=== PATIENT | female | born 1960 | race Caucasian/White ===

== ENCOUNTER 2019-04-22 12:52 | Inpatient (IN) | payer MEDICARE, MEDICAID, SELFPAY ==
[2019-04-22] VITALS (9 sets, daily range): BP systolic 113–131; BP diastolic 55–74; PULSE 80–107; RESP 22–40; TEMP 36.6–36.8; O2SAT 4–98; BMI 24.7
--- NOTE | ~2019-04-22 | XR_ITS ---
EXAMINATION: XR chest 2V DATE: 04/22/2019 14:49 INDICATION: Lung cancer and adrenal cancer presenting with shortness of breath TECHNIQUE: PA and lateral views of the chest were obtained. COMPARISON: Chest radiograph dated 02/25/2019 FINDINGS: Right internal jugular central venous port catheter with distal tip at the midsuperior vena cava. Hyp erexpansion of lungs consistent with emphysema better appreciated on prior CT. Mild increased interst itial pattern and mild bronchial wall thickening in the lower lung zones which could represent bronch itis or mild pulmonary edema. A few calcified nodules in the right mid and lower lung zone consistent with old granulomatous disease. Small irregular airspace opacity in the lateral right midlung zone p atchy on the cephalad margin of the minor fissure which appears new since the prior study. No pneumot horax or pleural effusion. Heart size is normal. Likely cholecystectomy clips in the upper abdomen. IMPRESSION: 1. New small patchy airspace opacity in the right midlung zone which need acute setting most likely r epresents atelectasis or pneumonia. Given the history of prior malignancy recommend radiographic foll ow-up to resolution. 2. Emphysema with mild increased interstitial pattern and bronchial wall thickening the lower lung zo farzana which could represent bronchitis or mild pulmonary edema. Reviewed, dictated and finalized at location A. PLANT MANAGER IMPRESSION: 1. New small patchy airspace opacity in the right midlung zone which need acute setting most likely represents atelectasis or pneumonia. Given the history of prior malignancy recommend radiographic follow-up to resolution. 2. Emphysema with mild increased interstitial pattern and bronchial wall thicke erica the lower lung zones which could represent bronchitis or mild pulmonary ed ck.
--- NOTE | ~2019-04-22 | CT_ITS ---
EXAMINATION: CTA chest PE protocol EXAM DATE: 04/22/2019 16:31 INDICATION: Lung, adrenal cancer. Shortness of breath, elevated d-dimer. TECHNIQUE: Spiral CTA of the chest (pulmonary arteries) was performed with 100 cc Omnipaque 350 intr avenous contrast injection. Images were acquired during the pulmonary arterial phase. Coronal maxi mum intensity projection 3D-reconstructions were created by the technologist on dedicated workstation . Axial, coronal and sagittal reformatted images were reviewed. The dose-length product (DLP) for t his examination was 296.73 mGy-cm. The exposure was tailored according to patient size (auto mA exp osure control), and iterative reconstruction (ASIR) was used as additional dose reduction technique. There is no prior study for comparison. FINDINGS: Pulmonary arteries are well opacified and without intraluminal filling defects. There is r ight suprahilar linear opacity, with soft tissue density surrounding bronchovascular structures of th e right hilum superiorly, could be treated lung cancer. There is mild bronchiectasis and moderate emp hysema. Some right apical scarring. No thoracic aortic dissection. Trace pericardial effusion. No pleural effusion. Tracheobronchial tree is patent. Some borderline- sized mediastinal lymph nodes. There is no pneumothorax. Heart normal in size. There is mild cor onary arterial calcification, arterial sclerosis. There are cholecystectomy clips. There is enlargem ent of the left adrenal gland, with 1.6 cm nodular density inside. There is a right-sided Chemo-Port. There may be an old healed right clavicular fracture. There is thoracic spondylosis without osteobl astic or osteolytic lesions identified. IMPRESSION: 1. No pulmonary emboli. 2. Infiltrative right suprahilar soft tissue without discrete focal mass, could be treated malignanc y. 3. Borderline size mediastinal lymph nodes. 4. Moderate emphysema, mild bronchiectasis. 5. Left adrenal nodule, indeterminate. Reviewed, dictated and finalized at location A. TIES TRADER IMPRESSION: 1. No pulmonary emboli. 2. Infiltrative right suprahilar soft tissue without discrete focal mass, coul d be treated malignancy. 3. Borderline size mediastinal lymph nodes. 4. Moderate emphysema, mild bronchiectasis. 5. Left adrenal nodule, indeterminate.
--- NOTE | 2019-04-22 13:47 | ECG_ITS ---
Measurements Intervals [place] Rate: 97 P: 74 ME: 144 QRS: 65 QRSD: 80 T: 66 QT: 369 QTc: 470 Interpretive Statements SINUS RHYTHM POSSIBLE RIGHT ATRIAL ENLARGEMENT LOW QRS VOLTAGE IN PRECORDIAL LEADS ANTEROLATERAL INFARCT, AGE INDETERMINATE INFERIOR INFARCT, AGE INDETERMINATE BASELINE ARTIFACT- II, III, AVL, AVF ABNORMAL ECG Electronically Signed On 04-22-2019 15:18:29 METER/RELAY TECHNICIAN by Mehlu Suazo D.O.
--- NOTE | 2019-04-22 13:52 | ED.SOB ---
HPI - SOB/Dyspnea General Chief Complaint: Shortness of Breath/Dyspnea Stated Complaint: shortness of breath,cold symptoms Time Seen by Provider: 04/22/19 13:50 Source: patient Mode of arrival: ambulatory Limitations: no limitations History of Present Illness HPI Narrative: Darcie is a 59-year-old female patient. She presents ambulatory to the emergency room. She states that she has been short of breath since yesterday. She has a history of COPD. She also has a history of right lung cancer. The lung cancer was diagnosed in December 2017. Her oncologist is Dr. Peres from the [facility] in [place]. She was treated with chemo and radiation for the lung cancer. 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 She states that she just finished radiation for this about a week ago. Her next appointment with her oncologist Dr. Peres in [place] is in 2 weeks. Darcie continues to smoke. She has been smoking since the age of 11 years. She still smokes about a pack per day. She does not use home oxygen. She does have a nebulizer machine which she uses with albuterol. At rest she feels okay but with exertion she feels short of breath. She denies any chest pain. She has no cough or fever. She has no abdominal pain. There is no history of nausea vomiting. MD elicited complaint: shortness of breath Pertinent past history: COPD and other ( Lung cancer. Cancer left adrenal gland.) Onset (ago): day(s) ( Two days) Timing: intermittent Severity: moderate Exacerbating factors: exertion Relieving factors: oxygen and rest Known history of: COPD and other ( Lung cancer. Left adrenal cancer.) Associated symptoms: chest pain ( No chest pain) and rash ( no calf pain swelling or tenderness.) Treatment prior to arrival: none Related Data Home oxygen amount: other ( None) Allergies Allergy/AdvReac Type Severity Reaction Status Date / Time cephalexin Allergy Unknown Verified 06/12/13 08:00 Penicillins Allergy Unknown Verified 06/12/13 07:59 Review of Systems Review of Systems: All systems reviewed & are unremarkable except as noted in HPI and below Constitutional: Constitutional: Reports no additional constitutional complaints, Denies chills and Denies fever(s) Eyes: Eyes: Reports no additional eye complaints and Denies change in vision ENT: Reports system reviewed and no additional complaints, except as documented, Denies epistaxis and Denies sore throat Cardiovascular: Cardiovascular: Reports no additional cardiovascular complaints, Denies chest pain and Denies radiating jaw, neck or arm pain Respiratory: Respiratory: Reports no additional respiratory complaints and Reports dyspnea Gastrointestinal: Gastrointestinal: Reports no additional gastrointestinal complaints, Denies abdominal pain, Denies diarrhea, Denies nausea and Denies vomiting Genitourinary: Genitourinary: Reports no additional female genitourinary complaints and Denies dysuria Musculoskeletal: Musculoskeletal: Reports no additional musculoskeletal complaints and Denies back pain Integumentary/Breasts: Skin/Breast: Reports system reviewed and no additional complaints, except as docu, Denies erythema and Denies rash Neurologic: Reports system reviewed and no additional complaints, except as documented, Denies vertigo, Denies dizziness, Denies syncope, Denies focal weakness and Denies numbness Psychiatric: Psychiatric: Reports no additional psychiatric complaints Endocrine: Endocrine: Reports no additional endocrine complaints, Denies polydipsia and Denies polyuria Hematologic/Lymphatic: Hematologic/Lymphatic: Reports no additional hematologic/lymphatic complaints, Denies easy bleeding and Denies easy bruising Allergic/Immunologic: Allergic/Immunologic: Reports no additional allergic/immunologic complaints, Denies lip swelling, Denies throat swelling and Denies tongue swelling PMFSH Past Medical History Medical History (Updated
[2019-04-22 14:19] LABS: Basophils Absolute Auto 0.02 K/mm3 (0.00-0.10); Basophils Percent Auto 0.3 % (0.0-1.0); Eosinophils Absolute Auto 0.04 K/mm3 (0.02-0.50); Eosinophils Percent Auto 0.6 % (1.0-6.0); Hemoglobin 12.2 g/dL (12.0-15.0); Immature Granulocyte Absolute 0.03 K/mm3 (0.00-0.00); Immature Granulocyte Percent A 0.5 % (0.0-0.0); Lymphocytes Absolute Auto 0.23 K/mm3 (1.10-4.50); Lymphocytes Percent Auto 3.6 % (18.0-42.0); Mean Corpuscular HGB Conc 34.9 g/dL (32.0-36.0); Mean Corpuscular Hemoglobin 35.2 pg (27.0-31.0); Mean Corpuscular Volume 100.9 fL (78.0-102.0); Mean Platelet Volume 9.6 fl (9.2-11.8); Monocytes Absolute Auto 0.47 K/mm3 (0.10-0.90); Monocytes Percent Auto 7.4 % (2.0-11.0); Neutrophils Absolute Auto 5.5 K/mm3 (1.7-7.2); Neutrophils Percent Auto 87.6 % (50.0-70.0); Platelet Count Result 101 K/mm3 (150-420); Red Blood Count 3.47 M/mm3 (4.20-5.40); Red Cell Distribution Width 13.7 % (11.6-14.4); White Blood Count 6.3 K/mm3 (4.8-10.8)
[2019-04-22 14:30] LABS: Base Excess ABG -3.3 mmol/L (0-2); HCO3 ABG 19.4 mmol/L (23-29); Oxygen Content ABG 16.4 %vol (16.0-22.0); Oxygen Saturation ABG 93.1 % (95-97); Oxyhemoglobin 90.6 % (94-100); PCO2 ABG 28.2 mmHg (35-45); PO2 ABG 64.5 mmHg (80-90); Total Hemoglobin 12.9 g/dL; pH ABG 7.46 (7.35-7.45)
[2019-04-22 14:31] LABS: Device NASAL CANNULA; Modified Allen's Test Pass; Site Drawn RIGHT RADIAL
[2019-04-22 14:35] LABS: INR 1.1; Partial Thromboplastin Time 29.9 SEC (22.3-31.6); Prothrombin Time 11.1 Seconds (9.64-11.0)
[2019-04-22 14:37] LABS: Alanine Aminotransferase 25 U/L (14-59); Albumin Level 3.1 g/dL (3.4-5.0); Alkaline Phosphatase 159 U/L (46-116); Anion Gap 14.5 mmol/L (7-16); Aspartate Amino Transferase 20 U/L (15-37); Bilirubin,Total 0.4 mg/dL (0.00-1.00); Blood Urea Nitrogen 7 mg/dL (7-18); Calcium 8.5 mg/dL (8.5-10.1); Carbon Dioxide 23 mmol/L (21-32); Chloride 104 mmol/L (98-108); Estimated CRCL calculation 0 ml/min; Estimated Glomerular Filt Rate > 60; Glucose 77 mg/dL (70-99); Magnesium 2.1 mg/dL (1.8-2.4); Osmolality Calculated 283 mOsm/kg (285-295); Potassium 3.5 mmol/L (3.5-5.1); Sodium 138 mmol/L (136-145); Total Protein 7.5 g/dL (6.4-8.2)
[2019-04-22 14:38] LABS: Troponin I < 0.02 ng/mL (0.00-0.056)
[2019-04-22 14:39] LABS: BNP 67 pg/mL (0-100)
[2019-04-22 15:11] LABS: D Dimer 2.06 mg/L (0.19-0.50)
[2019-04-22 16:43] LABS: Appearance Urine Clear (Clear); Bilirubin Urine Negative (Negative); Blood Urine Negative (Negative); Color Urine Yellow (Yellow); Glucose Urine UA Negative (Negative); Ketones Urine Negative (Negative); Leukocyte Esterase Ur Negative LEU/UL (Negative); Nitrate Urine Negative (Negative); Protein Urine Negative (Negative); Specific Grav Ur <= 1.005 (1.010-1.020); Urobilinogen Urine 0.2 mg/dL (0.2-1.0); pH Urine 6.5 (5.0-8.0)
[2019-04-22 16:50] LABS: Add Urine Microscopic? NO
[2019-04-22 17:01] LABS: Influenza Control Valid (Valid)
--- NOTE | 2019-04-22 17:36 | PC.NURSE ---
SITTING IN W/C AWAITING FOR RE-EXAM PER RADHA. FREDERIC. O2 CONT @ 4 L/NC
--- NOTE | 2019-04-22 17:44 | PC.NURSE ---
D. PT. TO BE ADMITTED OBSERVATION.
--- NOTE | 2019-04-22 18:21 | PC.NURSE ---
ER VERY BUSY PT TO BE ADMITTED TO 204
--- NOTE | 2019-04-22 19:08 | PC.NURSE ---
Patient brought top floor from ED per wheelchair. On O2 per nasal cannula at 4 l. Assisted rinto bed, oriented to room. Call light placed in reach. Commode moved to bedside
[2019-04-22] MEDS: levoFLOXacin 500 MG/D5W 100 ML 500 MG/100 ML BAG 100 MG (19:50)
[2019-04-22] MEDS: IPRATROPIUM 0.5 MG/ALBUTEROL SULFATE 2.5 MG AMPUL.NEB 3 ML INHALATION (20:14)
--- NOTE | 2019-04-22 22:17 | PC.NURSE ---
Patient sitting up in recliner. Coached in pursed lip breathing, focusing on slow and steady breathing. Patient responded well.
[2019-04-23] VITALS (14 sets, daily range): BP systolic 110–124; BP diastolic 57–71; PULSE 77–100; RESP 24–32; TEMP 36.6–37.2; O2SAT 92–96
[2019-04-23] MEDS: IPRATROPIUM 0.5 MG/ALBUTEROL SULFATE 2.5 MG AMPUL.NEB 3 ML INHALATION ×4 (00:32→18:08)
[2019-04-23] MEDS: LORAZEPAM INJ 2 MG/ML VIAL 0.5 MG IV PUSH ×3 (01:03→22:09)
[2019-04-23 05:32] LABS: Basophils Absolute Auto 0.02 K/mm3 (0.00-0.10); Basophils Percent Auto 0.2 % (0.0-1.0); Eosinophils Absolute Auto 0.07 K/mm3 (0.02-0.50); Eosinophils Percent Auto 0.9 % (1.0-6.0); Hematocrit 34.5 % (35.0-49.0); Hemoglobin 11.8 g/dL (12.0-15.0); Immature Granulocyte Absolute 0.02 K/mm3 (0.00-0.00); Immature Granulocyte Percent A 0.2 % (0.0-0.0); Lymphocytes Absolute Auto 0.31 K/mm3 (1.10-4.50); Lymphocytes Percent Auto 3.8 % (18.0-42.0); Mean Corpuscular HGB Conc 34.2 g/dL (32.0-36.0); Mean Corpuscular Hemoglobin 34.5 pg (27.0-31.0); Mean Corpuscular Volume 100.9 fL (78.0-102.0); Mean Platelet Volume 9.8 fl (9.2-11.8); Monocytes Absolute Auto 0.82 K/mm3 (0.10-0.90); Monocytes Percent Auto 10.2 % (2.0-11.0); Neutrophils Absolute Auto 6.8 K/mm3 (1.7-7.2); Neutrophils Percent Auto 84.7 % (50.0-70.0); Platelet Count Result 93 K/mm3 (150-420); Red Blood Count 3.42 M/mm3 (4.20-5.40); Red Cell Distribution Width 13.8 % (11.6-14.4); White Blood Count 8.1 K/mm3 (4.8-10.8)
[2019-04-23 05:44] LABS: Alanine Aminotransferase 26 U/L (14-59); Albumin Level 2.9 g/dL (3.4-5.0); Alkaline Phosphatase 151 U/L (46-116); Anion Gap 17.1 mmol/L (7-16); Aspartate Amino Transferase 22 U/L (15-37); Bilirubin,Total 0.4 mg/dL (0.00-1.00); Blood Urea Nitrogen 7 mg/dL (7-18); Calcium 8.5 mg/dL (8.5-10.1); Carbon Dioxide 21 mmol/L (21-32); Chloride 104 mmol/L (98-108); Estimated CRCL calculation 48 ml/min; Estimated Glomerular Filt Rate > 60; Glucose 98 mg/dL (70-99); Osmolality Calculated 284 mOsm/kg (285-295); Potassium 4.1 mmol/L (3.5-5.1); Sodium 138 mmol/L (136-145); Total Protein 7.1 g/dL (6.4-8.2)
--- NOTE | 2019-04-23 05:53 | PC.NURSE ---
O2 continues 4L per NC.
--- NOTE | 2019-04-23 08:15 | PC.NURSE ---
states no appetite, states takes a medication to help her appetite, no home medications noted
[2019-04-23] MEDS: ENOXAPARIN 40 MG/0.4 ML SYRINGE SUB-Q (09:13)
[2019-04-23] MEDS: LOVASTATIN 20 MG TABLET 10 MG PO (11:03)
[2019-04-23] MEDS: SPIRONOLACTONE 25 MG TABLET 50 MG PO (11:04)
[2019-04-23] MEDS: GABAPENTIN 300 MG CAPSULE PO ×2 (11:05→16:30)
[2019-04-23] MEDS: PANTOPRAZOLE 40 MG TABLET PO (11:06)
--- NOTE | 2019-04-23 11:28 | PC.NURSE ---
noted to be having more trouble breathing, becoming anxious, sats 92% 4L NC, ativan given and mucinex given, cannot lay flat, remains in chair at this time
[2019-04-23] MEDS: PHENYTOIN SODIUM 100 MG CAP 200 MG PO (11:50)
--- NOTE | 2019-04-23 11:53 | PM.IMHP ---
H&P: HPI History of Present Illness Chief complaint: shortness of breath,cold symptoms Narrative: Darcie Redd is a 59 year old female That presented to the ED with complaints of shortness of breath, productive coughing and sneezing that started Monday. she has a medical history of metastatic cancer that originated in the right lung and later to the left adrenal, COPD, she is a current smoker. She was diagnosed with the right lung CA in December 2017 treated with radiation and chemo that she completed. she completed radiation treatment 1 week ago for the adrenal CA. Her oncologist is Dr. Peres. Her current vital signs are 110/6596.6, 94% on 4 L nasal cannula, 26, 94. she has been admitted for PNA. while she was in the ER she did receive a dual nebulizer and was placed on Levaquin. The chest x-ray did indicate PNA. A blood culture was collected her platelets were also low 93 platelet count order every 48 hours. Patient's D-dimer was also positive CTA negative for PE Doppler of lower extremities pending. Patient does not normally use oxygen at home . The nurse did evaluate patient's sats on room air sats remained in the lower 90s to 92. Patient appears to becomes short of breath while coughing. She is also very anxious especially when she coughs. She does have Ativan ordered patient appears very uncomfortable at the time of assessment. She does have labored breathing at this time. Her sputum appears to be clear in color. We will continue antibiotic treatment with nebulizers and inhalers, cough suppressants, use of oxygen, and guaifenesin.Patient denies CP, palpitation, extremity numbness, lightheadness, dizziness, constipation, diarrhea, or chills or fever. Review of Systems Constitutional: Constitutional: Denies chills, Reports difficulty sleeping ( due to shortness of breath), Reports fatigue, Reports poor appetite and Reports weakness Cardiovascular: Cardiovascular: Reports as per HPI and Denies pedal edema Respiratory: Respiratory: Reports chest congestion, Reports cough ( productive clear sputum), Reports dyspnea and Reports wheezing Gastrointestinal: Gastrointestinal: Reports no additional gastrointestinal complaints, Denies dysphagia, Denies diarrhea, Denies loose stools and Denies nausea Psychiatric: Psychiatric: Reports anxiety PMFSH Past Medical History Medical History (Updated 04/23/19 @ 12:52 by Sonda R. Nigel, CAR AUDIO INSTALLER-C) Adrenal cancer COPD (chronic obstructive pulmonary disease) History of lung cancer Surgical History Surgical History (Updated 04/22/19 @ 14:41 by Steve Ho MD) History of appendectomy History of lung biopsy Hx of tonsillectomy Status post complete hysterectomy Family History Family History (Updated 04/22/19 @ 14:42 by Steve Ho MD) Mother No problems noted. Other Diabetes mellitus Family history of alcoholism Family history of blood dyscrasia Family history of heart disease in male family member before age 55 Family history of seizure disorder Hypertension Social History Social History (Updated 04/22/19 @ 14:43 by Steve Ho MD) Smoking packs per day: 1 Smoking cigarettes per day: 20.0 Years smoked: 45 Smoking pack-years: 45.00 Smoking status: Heavy tobacco smoker Tobacco type: cigarettes Additional smoking assessment comments: smokes 1 pack per day Alcohol intake: never Substance use: never Gender identity (if verbalized by the patient): Female Spiritual care concerns: No Agree to blood products: Yes Meds Home Medications and Allergies Home Medications Medication Instructions Recorded Confirmed Type No Home Medications 04/22/19 04/22/19 History Allergies Allergy/AdvReac Type Severity Reaction Status Date / Time cephalexin Allergy Unknown Verified 06/12/13 08:00 Penicillins Allergy Unknown Verified 06/12/13 07:59 Vital Signs Vital Signs - 24 hr 04/22/19
[2019-04-23] MEDS: LEVOTHYROXINE SODIUM 100 MCG TABLET PO (13:03)
[2019-04-23] MEDS: BENZONATATE 100 MG CAPSULE 200 MG PO ×2 (13:03→16:29)
[2019-04-23] MEDS: MEGESTROL ACETATE (*CHEMO) ORAL SUSP 40 MG/ML SYR 400 MG PO (16:28)
[2019-04-23] MEDS: PHENYTOIN SODIUM 100 MG CAP PO (16:29)
[2019-04-23] MEDS: POTASSIUM CHLORIDE 20 MEQ PACKET (FOR LIQUID) PO (16:30)
--- NOTE | 2019-04-23 18:34 | PC.NURSE ---
Resting more comfortable at this time, pillows under bottom and behind back and knees for comfort, oxygen on at 4L NC
--- NOTE | 2019-04-23 19:25 | PM.EVENT ---
Event Note Event Note: Patient states that she still feels rather short of breath in spite of the oxygen and is unsure why she is feeling this way. Exam shows mild acute respiratory distress without hypoxia and diffuse wheezing and rales. Tachycardic without JVD. no peripheral edema Likely COPD exacerbation plus pneumonia: We will continue antibiotics, nebs and put her on DVT prophylaxis. CTA chest negative and get venous ultrasound for DVT on . Hypertension, Hypothyroidism, seizures, GERD, lung cancer: continue current treatment. Will monitor symptoms. I have examined the patient reviewed the chart. I discussed the patient's care with Zander Manning APN and agree with her assessment and plan.
[2019-04-23] MEDS: VERAPAMIL HCL ER 120 MG TABLET PO (20:51)
[2019-04-23] MEDS: MONTELUKAST SODIUM 10 MG TABLET PO (20:51)
[2019-04-23] MEDS: MELATONIN 5 MG TABLET PO (20:51)
[2019-04-23] MEDS: levoFLOXacin 250 MG/D5W 50 ML 250 MG/50 ML BAG 50 MG IVPB (20:52)
--- NOTE | 2019-04-23 22:05 | PC.NURSE ---
pt was coughing and started feeling very anxious, pt requested medication to help her calm her anxiety, see MAR
--- NOTE | 2019-04-23 23:13 | PC.NURSE ---
Sitting up in chair, sleeping, report received from off going nurse. No distress noted.
[2019-04-24] VITALS (13 sets, daily range): BP systolic 105–120; BP diastolic 51–78; PULSE 63–107; RESP 20–22; TEMP 35.6–36.8; O2SAT 86–95
[2019-04-24] MEDS: IPRATROPIUM 0.5 MG/ALBUTEROL SULFATE 2.5 MG AMPUL.NEB 3 ML INHALATION ×3 (00:03→11:49)
--- NOTE | 2019-04-24 03:02 | PC.NURSE ---
Coughing frequently, states can't clear secretions; denies SOB, noted increased increased respiratory effort and respirations:24. Pox:95% on 4L per n.c.; Albuterol inhaler 2 puffs given. Education provided on medication use and side effects
[2019-04-24] MEDS: LEVOTHYROXINE SODIUM 100 MCG TABLET PO (05:53)
--- NOTE | 2019-04-24 06:40 | PC.NURSE ---
Sitting in chair with oxygen on, skin pink, Respirations easy/uinlabored. No distress noted.
--- NOTE | 2019-04-24 08:07 | PC.NURSE ---
Assisted from recliner chair to regular chair for breakfast
[2019-04-24] MEDS: MEGESTROL ACETATE (*CHEMO) ORAL SUSP 40 MG/ML SYR 400 MG PO (08:27)
[2019-04-24] MEDS: SPIRONOLACTONE 25 MG TABLET PO (08:28)
[2019-04-24] MEDS: GABAPENTIN 300 MG CAPSULE PO (08:28)
[2019-04-24] MEDS: PANTOPRAZOLE 40 MG TABLET PO (08:29)
[2019-04-24] MEDS: LOVASTATIN 20 MG TABLET 10 MG PO (08:29)
[2019-04-24] MEDS: DOCUSATE SODIUM 100 MG CAPSULE PO (08:29)
[2019-04-24] MEDS: BENZONATATE 100 MG CAPSULE 200 MG PO ×2 (08:30→12:32)
[2019-04-24] MEDS: POTASSIUM CHLORIDE 20 MEQ PACKET (FOR LIQUID) PO (08:30)
[2019-04-24] MEDS: ENOXAPARIN 40 MG/0.4 ML SYRINGE SUB-Q (08:30)
[2019-04-24] MEDS: PHENYTOIN SODIUM 100 MG CAP PO (08:30)
[2019-04-24 08:48] LABS: Hemoglobin 11.4 g/dL (12.0-15.0); Mean Corpuscular HGB Conc 34.5 g/dL (32.0-36.0); Mean Corpuscular Hemoglobin 34.5 pg (27.0-31.0); Mean Platelet Volume 9.8 fl (9.2-11.8); Platelet Count Result 84 K/mm3 (150-420); Red Cell Distribution Width 13.8 % (11.6-14.4)
[2019-04-24 09:06] LABS: Blood Urea Nitrogen 9 mg/dL (7-18); Calcium 8.7 mg/dL (8.5-10.1); Carbon Dioxide 20 mmol/L (21-32); Chloride 104 mmol/L (98-108); Estimated CRCL calculation 53 ml/min; Estimated Glomerular Filt Rate > 60; Glucose 93 mg/dL (70-99); Osmolality Calculated 282 mOsm/kg (285-295); Sodium 137 mmol/L (136-145)
--- NOTE | 2019-04-24 09:18 | PC.NURSE ---
Up to commode, increase champion noted when up, oxygen on at 4L NC
[2019-04-24] MEDS: methylPREDNISolone SOD SUCC 125 MG VIAL 60 MG IV PUSH (10:17)
--- NOTE | 2019-04-24 11:36 | HOMEO2EVAL ---
Home Oxygen Evaluation RC: Home Oxygen (O2) Evaluation Start: 04/24/19 10:06 Freq: ONCE Status: Active Protocol: RPE Activity Type Activity Date Activity User E-Sign Co-Sign Detail Recorded Client Recorded Date Recorded By Document 04/24/19 11:10 SJBernard [id number] 04/24/19 11:36 SJB Document 04/24/19 11:13 SJB [id number] 04/24/19 11:36 SJB Document 04/24/19 11:14 SJB [id number] 04/24/19 11:36 SJB Document 04/24/19 11:16 SJB [id number] 04/24/19 11:36 SJB 04/24/19 04/24/19 04/24/19 11:10 11:13 11:14 Home O2 Evaluation Test Phase Resting Exercise Exercise Oxygen Delivery Room Air Nasal Cannula Oxygen Flow Rate (L/min) 0 2 Pulse Oximetry (90-100 %) 91 86 L 88 L Pulse Rate (60-100 beats/min) 95 104 H 107 H Activity Tolerance Fair Fair Rating of Perceived Dyspnea (PD) +3 Moderate +3 Moderate Difficulty, But Difficulty, But Can Continue Can Continue Rate of Perceived Exertion (PE) 13 Somewhat 13 Somewhat Hard Hard Ambulation Distance (feet) 45 100 Home Oxygen Evaluation Comments Pt walked Pt stopped at approx. 45 ft 100 ft, SOB, Sp02 dropping Sp02 at 88% on to 86% on room 2 lpm. Will air. 2 lpm continue walk oxygen will be increasing initiated to oxygen to 3 lpm continue walk. . Treatment Charges O2 Evaluation 04/24/19 11:16 Home O2 Evaluation Test Phase Exercise Oxygen Delivery Oxygen Flow Rate (L/min) 3 Pulse Oximetry (90-100 %) 94 Pulse Rate (60-100 beats/min) 105 H Activity Tolerance Fair Rating of Perceived Dyspnea (PD) +3 Moderate Difficulty, But Can Continue Rate of Perceived Exertion (PE) 17 Very Hard Ambulation Distance (feet) 135 Home Oxygen Evaluation Comments Pt continued to walk to 135 ft with Sp02s at 93-94%. PLB re educated and demonstrated by patient. Treatment Charges
--- NOTE | 2019-04-24 12:17 | PC.NURSE ---
Attempting to eat lunch, denies needs, no pain, champion noted, oxygen in place
--- NOTE | 2019-04-24 12:54 | PM.DS ---
DS: Diagnosis Admitting Diagnosis Admitting Diagnosis: Secondary malignant neoplasm of unspecified site Discharge Diagnosis (1) Metastatic disease: Code(s): C79.9 - Secondary malignant neoplasm of unspecified site Status: Acute Assessment and Plan: - patient diagnosed with right lung CA in 2018 along with Mediastinal lymph node involvement, radiation and chemo completed. - Also diagnosed with left adrenal CA she completed radiation 1 week ago. - Darcie is still getting Chemo every 2 weeks, and her last tx was due yesterday but she missed it due to this hospitalization. She called her Oncologist Dr. Peres and it was cancelled. She will now have to wait 2 weeks for her next Chemo tx. - She has been instructed to F/U with her Oncologist Dr. Peres, PCP Dr. Fajardo, and a Aquatic Director in the next 3-10 days. - Due to her Cancer/Chemo/Radiation/ Smoking history / Cerebral Aneurysm history - she is to follow up with the Vascular Physician in [place] in 3-10 days. (2) GERD (gastroesophageal reflux disease): Code(s): K21.9 - Gastro-esophageal reflux disease without esophagitis Status: Acute Assessment and Plan: - Stable - Continued oral Protonix at discharge (3) History of seizure: Code(s): Z87.898 - Personal history of other specified conditions Status: Acute Assessment and Plan: - stable - she has not had a seizure in over 20 years with the use of her medications. - continued home dose of Dilantin at discharge - started seizure precaution - no concerns or signs of seizures while hospitalized. (4) Hypertension: Code(s): I10 - Essential (primary) hypertension Status: Acute Assessment and Plan: stable - blood pressures stable 110/65 - continued home antihypertensive medication. - no titrations made or needed while in hospital. - vital signs as ordered (5) Hypothyroidism: Code(s): E03.9 - Hypothyroidism, unspecified Status: Acute Assessment and Plan: - continue Synthroid - will follow up with PCP (6) Pneumonia: Qualifiers: Laterality: right Lung location: middle lobe of lung Pneumonia type: due to unspecified organism Qualified Code(s): J18.9 - Pneumonia, unspecified organism Code(s): J18.9 - Pneumonia, unspecified organism Status: Acute Assessment and Plan: - chest x-ray indicate-New small patchy airspace opacity in the right midlung zone which need acute setting most likely represents atelectasis or pneumonia. - continue Levaquin oral at home at discharge. - continue nebulizers and inhalers at home - continue use of oxygen as ordered below. Wear your 3 Lpm Oxygen for all Walking, Exercise, Activity, and Activities of Daily Living, Bathroom trips, etc. Without oxygen, your oximetry levels drops and you may become short of breath, dizzy, and/or light-headed. May use 0-3 LPM Oxygen while at rest, but ONLY if sitting upright. If Napping or Sleeping or lying down, MUST wear 2-3 LPM Oxygen. Follow up with your Aquatic Director. Ask PCP Dr. Fajardo for Aquatic Director referral if you do not currently have a Aquatic Director. May shower with Oxygen on at 3 L O2 NC and use a Shower Chair with someone standing beside for assistance and support. No Driving. Use your transportable Oxygen supply for trips away from home, such as doctor visits, etc. Use your Nebulizer for Duo-Neb treatments every 4-6 hours SCHEDULED dosing for the next 5-7 days to keep improving. Likely COPD exacerbation WITH RML, RLL, LLL pneumonia: Continue your Antibiotics Levaquin, Steroids Prednisone, Nebulizer Treatments, Mucinex, Tessalon, and Allergy medications. In the next 3-7 days, please Follow up with your PCP Dr. Fajardo's office. In the next 3-7 days, Follow up with your Vascular Physician Dr. Mel Pizano at [place] [place] [facility] at . Discuss your elevated D-dimer and low Platelets and Aneurysm. In the next 3-7 days, p
--- NOTE | 2019-04-24 14:46 | PC.NURSE ---
Mikhail here and set up for home oxygen, assited to dress, awaiting return of for orange picker for home
--- NOTE | 2019-04-24 15:30 | PC.NURSE ---
WC with oxygen to car, discharged with spouse, personal items and medications sent with patient
--- NOTE | 2019-04-30 13:21 | PC.NURSE ---
Discharge Call Back [phone] Patient is doing better, trying to get stronger. Discharge F/U complete yesterday, Follow-up X-Ray good Problem with medication prescriptions at discharge, and that she sat in the ER for 7 Hours before being transfered up to the floor. Otherwise the Floor RN's were amazing. All discharge instructions were understood given verbally and in writing.
== END 2019-04-24 15:35 | disposition home or self-care (01) | DRG 190 ==
LOC: CHSED 12:56 → CHS2ND 17:46
PROVIDERS: Nurse Practitioner; Admitting Provider Surgery; Emergency Provider Surgery; PCP Internal Medicine; Visit Provider Surgery
DX: J44.0 Chronic obstructive pulmonary disease with (acute) lower respiratory infection (principal); J18.9 Pneumonia, unspecified organism; C34.91 Malignant neoplasm of unspecified part of right bronchus or lung; C79.72 Secondary malignant neoplasm of left adrenal gland; D69.59 Other secondary thrombocytopenia; F17.210 Nicotine dependence, cigarettes, uncomplicated; I10 Essential (primary) hypertension; E03.9 Hypothyroidism, unspecified; K21.9 Gastro-esophageal reflux disease without esophagitis; R56.9 Unspecified convulsions; T45.1X5D Adverse effect of antineoplastic and immunosuppressive drugs, subsequent encounter; Z92.3 Personal history of irradiation
CPT/HCPCS: 36415; 36600; 71046; 71275; 80048; 80053; 81003; 82805; 83735; 83880; 84484; 85025; 85027; 85380; 85610; 85730; 87040; 87804; 88321; 93005; 94618; 94640; 99284; 99285; A9270; J1642; J1650; J1956; J2060; J2930; Q9965

== ENCOUNTER 2019-06-03 06:53 | Outpatient (CLI) | payer MEDICARE, SELFPAY ==
[2019-06-03 07:14] LABS: Basophils Absolute Auto 0.05 K/mm3 (0.00-0.10); Basophils Percent Auto 0.7 % (0.0-1.0); Eosinophils Absolute Auto 0.04 K/mm3 (0.02-0.50); Eosinophils Percent Auto 0.5 % (1.0-6.0); Hematocrit 33.8 % (35.0-49.0); Hemoglobin 11.8 g/dL (12.0-15.0); Immature Granulocyte Absolute 0.04 K/mm3 (0.00-0.00); Immature Granulocyte Percent A 0.5 % (0.0-0.0); Lymphocytes Percent Auto 13.2 % (18.0-42.0); Mean Corpuscular HGB Conc 34.9 g/dL (32.0-36.0); Mean Corpuscular Hemoglobin 36.6 pg (27.0-31.0); Mean Platelet Volume 8.9 fl (9.2-11.8); Monocytes Absolute Auto 0.87 K/mm3 (0.10-0.90); Monocytes Percent Auto 11.4 % (2.0-11.0); Neutrophils Absolute Auto 5.6 K/mm3 (1.7-7.2); Neutrophils Percent Auto 73.7 % (50.0-70.0); Platelet Count Result 181 K/mm3 (150-420); Red Blood Count 3.22 M/mm3 (4.20-5.40); Red Cell Distribution Width 15.9 % (11.6-14.4); White Blood Count 7.6 K/mm3 (4.8-10.8)
[2019-06-03 08:48] LABS: Alanine Aminotransferase 36 U/L (14-59); Albumin Level 3.2 g/dL (3.4-5.0); Alkaline Phosphatase 179 U/L (46-116); Aspartate Amino Transferase 26 U/L (15-37); Bilirubin,Total 0.2 mg/dL (0.00-1.00); Blood Urea Nitrogen 10 mg/dL (7-18); Calcium 8.2 mg/dL (8.5-10.1); Carbon Dioxide 21 mmol/L (21-32); Chloride 109 mmol/L (98-108); Estimated Glomerular Filt Rate > 60; Glucose 74 mg/dL (70-99); Osmolality Calculated 290 mOsm/kg (285-295); Sodium 141 mmol/L (136-145); Total Protein 6.7 g/dL (6.4-8.2)
== END 2019-06-03 06:54 | disposition home or self-care (01) ==
LOC: CHSLAB 06:56
PROVIDERS: PCP Internal Medicine; Visit Provider Internal Medicine Hematology & Oncology
DX: C34.90 Malignant neoplasm of unspecified part of unspecified bronchus or lung (principal); R53.83 Other fatigue; Z79.899 Other long term (current) drug therapy
CPT/HCPCS: 36415; 80053; 85025

== ENCOUNTER 2019-12-20 12:19 | Outpatient (CLI) | payer MEDICARE, MEDICAID, SELFPAY ==
--- NOTE | ~2019-12-20 | XR_ITS ---
EXAMINATION: XR shoulder LT min 2V DATE: 12/20/2019 12:38 INDICATION: Left shoulder pain. TECHNIQUE: 4 views of left shoulder were obtained. COMPARISON: None. FINDINGS: Bone alignment is normal. No fracture. Glenohumeral joint is normal. There is mild acromioc lavicular joint osteoarthritis. There is a central line tip in superior vena cava. IMPRESSION: 1. Mild acromioclavicular joint osteoarthritis. Reviewed, dictated and finalized at location B.
== END 2019-12-20 12:20 | disposition home or self-care (01) ==
LOC: CHSIMG 12:21
PROVIDERS: PCP Internal Medicine; Visit Provider Internal Medicine
DX: M25.512 Pain in left shoulder (principal); Z85.038 Personal history of other malignant neoplasm of large intestine
CPT/HCPCS: 73030

== ENCOUNTER 2020-02-22 07:07 | Outpatient (CLI) | payer MEDICARE, SELFPAY ==
[2020-02-26 11:07] LABS: Metanephrine, Free 48 pg/mL (<=57); Normetanephrine, Free 128 pg/mL (<=148); Total, Free (MN + NMN) 176 pg/mL (<=205)
[2020-02-26 13:07] LABS: DHEA-Sulfate 2 mcg/dL (12-133)
[2020-02-27 12:47] LABS: Cortisol Random 2.9 mcg/dL (***)
[2020-02-29 13:37] LABS: Renin 3.73 ng/mL/h (0.25-5.82)
== END 2020-02-22 07:08 | disposition home or self-care (01) ==
LOC: CHSLAB 07:13
PROVIDERS: PCP Internal Medicine
DX: E27.8 Other specified disorders of adrenal gland (principal)
CPT/HCPCS: 36415; 82088; 82533; 82627; 83498; 83835; 84244

== ENCOUNTER 2020-02-24 09:28 | Outpatient (CLI) | payer MEDICARE, SELFPAY | END 2020-02-24 09:29 | disposition home or self-care (01) | PROVIDERS: PCP Internal Medicine | DX: E27.8 Other specified disorders of adrenal gland (principal) | CPT/HCPCS: 36415; 82384; 82530; 82570; 83835 ==

== ENCOUNTER 2020-05-19 14:55 | Outpatient (CLI) | payer MEDICARE, SELFPAY ==
[2020-05-19 15:06] LABS: Basophils Absolute Auto 0.06 K/mm3 (0.00-0.10); Basophils Percent Auto 0.9 % (0.0-1.0); Eosinophils Absolute Auto 0.17 K/mm3 (0.02-0.50); Eosinophils Percent Auto 2.5 % (1.0-6.0); Hematocrit 33.2 % (35.0-49.0); Hemoglobin 11.2 g/dL (12.0-15.0); Immature Granulocyte Absolute 0.02 K/mm3 (0.00-0.00); Immature Granulocyte Percent A 0.3 % (0.0-0.0); Lymphocytes Absolute Auto 1.13 K/mm3 (1.10-4.50); Lymphocytes Percent Auto 16.6 % (18.0-42.0); Mean Corpuscular HGB Conc 33.7 g/dL (32.0-36.0); Mean Corpuscular Hemoglobin 32.8 pg (27.0-31.0); Mean Corpuscular Volume 97.4 fL (78.0-102.0); Mean Platelet Volume 8.9 fl (9.2-11.8); Monocytes Absolute Auto 0.72 K/mm3 (0.10-0.90); Monocytes Percent Auto 10.6 % (2.0-11.0); Neutrophils Absolute Auto 4.7 K/mm3 (1.7-7.2); Neutrophils Percent Auto 69.1 % (50.0-70.0); Platelet Count Result 233 K/mm3 (150-420); Red Blood Count 3.41 M/mm3 (4.20-5.40); Red Cell Distribution Width 12.5 % (11.6-14.4); White Blood Count 6.8 K/mm3 (4.8-10.8)
[2020-05-19 15:14] LABS: Add Urine Microscopic? NO; Appearance Urine Clear (Clear); Bilirubin Urine Negative (Negative); Blood Urine Negative (Negative); Color Urine Yellow (Yellow); Glucose Urine UA Negative (Negative); Ketones Urine Negative (Negative); Leukocyte Esterase Ur Negative LEU/UL (Negative); Nitrate Urine Negative (Negative); Protein Urine Negative (Negative); Specific Grav Ur 1.015 (1.010-1.020); Urobilinogen Urine 0.2 mg/dL (0.2-1.0); pH Urine 5.5 (5.0-8.0)
[2020-05-19 15:22] LABS: Alanine Aminotransferase 21 U/L (14-59); Albumin Level 3.2 g/dL (3.4-5.0); Alkaline Phosphatase 175 U/L (46-116); Anion Gap 10 mmol/L (8-16); Aspartate Amino Transferase 23 U/L (15-37); Bilirubin,Total 0.3 mg/dL (0.00-1.00); Blood Urea Nitrogen 6 mg/dL (7-18); Calcium 8.4 mg/dL (8.5-10.1); Carbon Dioxide 24 mmol/L (21-32); Chloride 100 mmol/L (98-108); Creatine Kinase 63 U/L (26-192); Estimated Glomerular Filt Rate > 60; Glucose 95 mg/dL (70-99); Osmolality Calculated 275 mOsm/kg (285-295); Phenytoin Dilantin 14 ug/mL (10-20); Phosphorus 3.3 mg/dL (2.6-4.7); Potassium 3.6 mmol/L (3.5-5.1); Sodium 134 mmol/L (136-145); Total Protein 7.1 g/dL (6.4-8.2)
[2020-05-21 15:48] LABS: Gabapentin 4.9 mcg/mL
== END 2020-05-19 14:56 | disposition home or self-care (01) ==
LOC: CHSLAB 14:56
PROVIDERS: PCP Internal Medicine; Visit Provider Internal Medicine
DX: G25.9 Extrapyramidal and movement disorder, unspecified (principal); G40.909 Epilepsy, unspecified, not intractable, without status epilepticus; Z85.118 Personal history of other malignant neoplasm of bronchus and lung
CPT/HCPCS: 36415; 80053; 80171; 80185; 81003; 82550; 83735; 84100; 85025; 86140

== ENCOUNTER 2020-05-23 08:04 | Outpatient (CLI) | payer MEDICARE, MEDICAID, SELFPAY ==
--- NOTE | ~2020-05-23 | MR_ITS ---
EXAMINATION: MR brain/brain stem wo/w con DATE: 05/23/2020 11:10 INDICATION: Metastatic disease. Lung cancer. TECHNIQUE: Magnetic resonance imaging (MRI) of the brain and brainstem was performed without and with 10 mL MultiHance intravenous contrast. Sequences included sagittal and axial T1-weighted FSE, axial diffusion-weighted FS EPI, axial T2*-weighted GRE, axial T2-weighted FLAIR Propeller, and axial T2-we ighted Propeller. Postcontrast sequences included axial and coronal T1-weighted FSE. Apparent diffusi on coefficient (ADC) maps were created. COMPARISON: Head CT 07/12/2018 FINDINGS: There are scattered areas of nonspecific increased T2-weighted signal intensity in the cere bral white matter and jeremy. There is no intracranial hemorrhage, acute infarction, or abnormal intrac ranial mass lesion. The ventricles are normal in size. The paranasal sinuses are clear. There are lik mike changes of ocular lens replacement surgeries. There are small bilateral mastoid effusions. IMPRESSION: 1. No evidence of metastatic disease. 2. 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 Reviewed, dictated and finalized at location A. Y COUNTER
== END 2020-05-23 08:05 | disposition home or self-care (01) ==
LOC: CHSIMG 08:07
PROVIDERS: PCP Internal Medicine; Visit Provider Internal Medicine
DX: C79.9 Secondary malignant neoplasm of unspecified site (principal)
CPT/HCPCS: 70553; A9577

== ENCOUNTER 2022-02-03 21:03 | Inpatient (IN) | payer MEDICARE, MEDICAID, SELFPAY ==
--- NOTE | ~2022-02-03 | XR_ITS ---
EXAMINATION: XR chest 1V portable INDICATION: Shortness of breath TECHNIQUE: Portable AP chest at 2200 hours COMPARISON: 05/20/2019 FINDINGS: A right internal jugular Port-A-Cath ends with its tip in the distal superior vena cava. Th ere is scarring in the right lung apex and volume loss in the right upper lobe. Calcified nodules of the right lung likely reflect old granulomatous disease. The lungs are free of acute opacities. No pl eural effusion or pneumothorax. IMPRESSION: 1. No acute cardiopulmonary abnormality. Reviewed, dictated and finalized at location F.
--- NOTE | ~2022-02-03 | NM_ITS ---
EXAMINATION: NM pulmonary perfusion DATE: 02/04/2022 11:03 INDICATION: Elevated d-dimer TECHNIQUE: 5.5 mCi Tc-99m MAA by intravenous route. Scintigraphic images of the chest were obtained. COMPARISON: Chest radiograph dated 02/03/2022 FINDINGS: Large perfusion defect involving nearly the entire right upper lobe with mild relative sparing at the apex. There is corresponding airspace opacity and some volume loss in the right upper lobe on the ea rlier radiograph. Additional additional large perfusion defect without associated airspace opacity in volving the posterior basilar segment of the right lower lobe. Additional large perfusion defect invo lving the right middle lobe also without associated airspace opacity. A couple small unmatched perfus ion defects at the lingula and anterior segment of the left upper lobe. IMPRESSION: 1. High probability for pulmonary embolism. Reviewed, dictated and finalized at location B.
--- NOTE | ~2022-02-03 | CT_ITS ---
EXAMINATION: CT brain wo con INDICATION: Headache COMPARISON: 07/12/2018 TECHNIQUE: Standard unenhanced head CT. The dose-length product (DLP) was 681.00 mGy-cm. The mA was a djusted according to patient size. Iterative reconstruction technique was employed. FINDINGS: There is no acute intraparenchymal hemorrhage. No evidence of mass lesion. No evidence of a cute infarction. There is diffuse hypodensity in the cerebral white matter, likely related to radiati on change. There is mild prominence of the sulci and ventricles related to cerebral atrophy. Intracra nial calcified cerebral atherosclerosis is noted. There are no extra-axial collections. There is no m ass effect or midline shift. Changes in the globes are likely from ocular lens surgery. The visualize d sinuses and mastoid air cells are well aerated. IMPRESSION: 1. No acute intracranial abnormality. 2. Age related findings. 3. Diffuse cerebral white matter disease with interval worsening. Reviewed, dictated and finalized at location F.
--- NOTE | 2022-02-03 21:07 | ECG_ITS ---
Measurements Intervals [place] Rate: 125 P: [place]: 0 QRS: 54 QRSD: 165 T: 83 QT: 348 QTc: 503 Interpretive Statements ATRIAL FLUTTER WITH 2-[address] ABNORMALITY ABNORMAL ECG COMPARED TO ECG 04/22/2019 14:02:54 ATRIAL FLUTTER REPLACES SINUS RHYTHM Electronically Signed On 02-04-2022 15:50:52 CDT by Leeroy Owusu M.D.
[2022-02-03 21:08] VITALS: BP 143/90; PULSE 107; RESP 20; TEMP 37.4; O2SAT 96
[2022-02-03 21:32] LABS: Basophils Absolute Auto 0.05 K/mm3 (0.00-0.10); Basophils Percent Auto 0.5 % (0.0-1.0); Eosinophils Absolute Auto 0.15 K/mm3 (0.02-0.50); Eosinophils Percent Auto 1.6 % (1.0-6.0); Hemoglobin 12.7 g/dL (12.0-15.0); Immature Granulocyte Absolute 0.05 K/mm3 (0.00-0.00); Immature Granulocyte Percent A 0.5 % (0.0-0.0); Lymphocytes Percent Auto 2.1 % (18.0-42.0); Mean Corpuscular HGB Conc 34.3 g/dL (32.0-36.0); Mean Corpuscular Hemoglobin 33.1 pg (27.0-31.0); Mean Corpuscular Volume 96.4 fL (78.0-102.0); Mean Platelet Volume 8.9 fl (9.2-11.8); Monocytes Absolute Auto 0.38 K/mm3 (0.10-0.90); Neutrophils Absolute Auto 8.8 K/mm3 (1.7-7.2); Neutrophils Percent Auto 91.3 % (50.0-70.0); Platelet Count Result 261 K/mm3 (150-420); Red Blood Count 3.84 M/mm3 (4.20-5.40); Red Cell Distribution Width 12.5 % (11.6-14.4); White Blood Count 9.6 K/mm3 (4.8-10.8)
[2022-02-03 21:34] LABS: Appearance Urine Clear (Clear); Bilirubin Urine Negative (Negative); Blood Urine 1+ (Negative); Glucose Urine UA Negative (Negative); Ketones Urine Negative (Negative); Leukocyte Esterase Ur Trace (Negative); Nitrate Urine Negative (Negative); Protein Urine 1+ (Negative); Urobilinogen Urine 0.2 mg/dL (0.2-1.0)
[2022-02-03 21:41] LABS: Add Urine Microscopic? YES; Bacteria Urine 4+ /hpf; Color Urine Light Yellow (Yellow); Squamous Epithelial Cell Urine None seen /hpf (Few)
[2022-02-03 21:44] LABS: Partial Thromboplastin Time 26.4 SEC (23.90-30.70); Prothrombin Time 10.9 Seconds (9.50-12.10)
[2022-02-03 21:53] LABS: Alanine Aminotransferase 37 U/L (14-59); Albumin Level 3.4 g/dL (3.4-5.0); Alkaline Phosphatase 211 U/L (46-116); Anion Gap 10 mmol/L (8-16); Aspartate Amino Transferase 26 U/L (15-37); Bilirubin,Total 0.3 mg/dL (0.00-1.00); Blood Urea Nitrogen 27 mg/dL (7-18); CRP 5.6 mg/dL (0.0-0.9); Calcium 8.5 mg/dL (8.5-10.1); Carbon Dioxide 29 mmol/L (21-32); Chloride 98 mmol/L (98-108); Estimated Glomerular Filt Rate 26; Glucose 127 mg/dL (70-99); Magnesium 3.2 mg/dL (1.8-2.4); NT Pro B Type Natriuretic Pept 2530 pg/mL (0-125); Osmolality Calculated 291 mOsm/kg (285-295); Potassium 3.2 mmol/L (3.5-5.1); Sodium 137 mmol/L (136-145); Total Protein 7.5 g/dL (6.4-8.2)
[2022-02-03 21:57] LABS: D Dimer 3.89 mg/L (0.19-0.50)
[2022-02-03] MEDS: SODIUM CHLORIDE 0.9% IV 1,000 ML 999 ML IV CONT (22:00)
[2022-02-03] MEDS: ENOXAPARIN 100 MG/ML SYRINGE 55 MG SUB-Q (22:24)
[2022-02-03] MEDS: KCL 20 MEQ/SW 100 ML 100 ML 50 MEQ IVPB (22:24)
--- NOTE | 2022-02-03 22:27 | ED.AMS ---
HPI - Altered Mental Status General Chief Complaint: Altered Mental Status Stated Complaint: ambulance Time Seen by Provider: 02/03/22 21:06 Source: patient, family and EMS Mode of arrival: EMS Limitations: no limitations History of Present Illness HPI narrative: this is a 61-year-old female that presents via EMS for shortness of breath and confusion that was witnessed by her family has had weakness over the last 3 to 4 hours, patient was seen this afternoon by her primary care physician and was doing well, but family member states that she went out to do some shopping and run some errands and when she came home she was weak, she did complain of some mild shortness of breath although her lungs were clear with no audible wheezing, patient does have a history of lung cancer apparently in remission has received chemo and radiation therapy approximately 6 months or more ago. Currently no shortness of breath no chest pain no abdominal pain no fever chills. complaint: confusion Onset (ago): hour(s) Timing confirmed by: spouse Severity: moderate Consistency of symptoms: unknown ( Improved) Context: cancer, seizure disorder and COPD Related Data Allergies Allergy/AdvReac Type Severity Reaction Status Date / Time cephalexin Allergy Unknown Verified 06/12/13 08:00 Penicillins Allergy Unknown Verified 06/12/13 07:59 Review of Systems Review of Systems: All systems reviewed & are unremarkable except as noted in HPI and below PMFSH Past Medical History Medical History Adrenal cancer COPD (chronic obstructive pulmonary disease) History of lung cancer Surgical History Surgical History History of appendectomy History of lung biopsy Hx of tonsillectomy Status post complete hysterectomy Family History Family History Mother No problems noted. Other Diabetes mellitus Family history of alcoholism Family history of blood dyscrasia Family history of heart disease in male family member before age 55 Family history of seizure disorder Hypertension Social History Social History Smoking packs per day: 1 Smoking cigarettes per day: 20.0 Years smoked: 45 Smoking pack-years: 45.00 Smoking status: Heavy tobacco smoker Tobacco type: cigarettes Additional smoking assessment comments: smokes 1 pack per day Alcohol intake: never Substance use: never Gender identity (if verbalized by the patient): Female Spiritual care concerns: No Agree to blood products: Yes Exam Const: General: ill appearing Nutritional Appearance: well nourished Limitations: no limitations HENMT: Head: normal to inspection Face/Nose/Sinus: Normal external nose present Face and sinus: normal facial exam Mouth: Yes Normal oral and palatal mucosa present Eyes: Conjunctivae: conjunctivae normal Pupils: Equal, round and reactive pupils present EOM: EOMs intact bilaterally Neck: Neck: normal visual inspection, no lymphadenopathy and no meningeal signs Chest: Chest palpation & inspection: normal inspection of the chest Resp: Effort & Inspection: normal respiratory effort Auscultation: clear to auscultation bilaterally Cardio: Rate: regular rate Rhythm: regular rhythm GI: GI Palp: Yes Soft to palpation Auscultation: normal bowel sounds : General: Yes bladder normal to palpation Skin: General skin exam: normal color Rashes: no rashes Wounds: no wounds Neuro: General: patient oriented x3, moves all extremities, no meningeal signs and no focal motor deficits Cranial nerves: Yes Nystagmus not present Speech: normal speech Extrem: General: normal to inspection Psych: Mental Status: mental status grossly normal Affect: normal affect Course Course Emergency Course: Patient contin
[2022-02-03 22:59] VITALS: BP 177/96; PULSE 102; RESP 22; TEMP 38.4; O2SAT 93
[2022-02-03 23:10] LABS: SARS-CoV-2 Ag Negative (Negative)
[2022-02-03 23:27] VITALS: O2SAT 93
--- NOTE | 2022-02-03 23:35 | PC.NURSE ---
Pt to be admitted to room # of 206 for observation, room assignment given to VILMA Chowdhury RN.
[2022-02-03 23:44] VITALS: BP 160/90; PULSE 98; RESP 20; TEMP 37.8; O2SAT 96
[2022-02-03] MEDS: ACETAMINOPHEN 325 MG TABLET 650 MG PO (23:45)
[2022-02-04] VITALS (14 sets, daily range): BP systolic 134–153; BP diastolic 62–79; PULSE 86–104; RESP 16–26; TEMP 36.8–38; O2SAT 91–96; BMI 23.8
--- NOTE | 2022-02-04 00:10 | PC.NURSE ---
Pt arrived on unit at 0010, transported by lucien Dc via stretcher, with pt to give history if able.
--- NOTE | 2022-02-04 00:33 | ADMGEN ---
This patient, Darcie Redd, was admitted to 2nd Floor Room 206-1. Patient/family oriented to hospital policies and general routines including ID bracelet, bed and alarms, visiting hours, pain management, procedures, bathroom and other care routines, personal items, smoking policy, room service/diet, and visiting hours. Information on how to activate the Rapid Response Team has been discussed. Patient/Family are encouraged to report perceived risks to care and to ask questions if they do not understand what they are told or what they should do.
[2022-02-04] MEDS: levoFLOXacin 500 MG/D5W 100 ML 500 MG/100 ML BAG 100 MG IVPB (00:57)
--- NOTE | 2022-02-04 03:21 | PC.NURSE ---
Pt awoke while VS were being taken. This RN asked her if she knew where she was at and the year to which she answered both correctly. Pt asked What happened? This RN explained why she were admitted and explained she was confused at the time of admission. Pt reeducated on how to use the call light and visitor policy to which pt verbalized understanding. Pt informed that her will return at 10 AM per his statement at admission and bring her clothes and a phone laundry or dry cleaners counter clerk. Pt stated she feels much better than she did prior and is much more communicative and voices appreciation. Call light w/in reach, side railsx3, bed alarm and night light on, and bed in lowest position for pt safety.
[2022-02-04 05:31] LABS: Basophils Absolute Auto 0.03 K/mm3 (0.00-0.10); Basophils Percent Auto 0.4 % (0.0-1.0); Eosinophils Absolute Auto 0.02 K/mm3 (0.02-0.50); Eosinophils Percent Auto 0.3 % (1.0-6.0); Hematocrit 30.6 % (35.0-49.0); Hemoglobin 10.6 g/dL (12.0-15.0); Immature Granulocyte Absolute 0.03 K/mm3 (0.00-0.00); Immature Granulocyte Percent A 0.4 % (0.0-0.0); Lymphocytes Absolute Auto 0.16 K/mm3 (1.10-4.50); Lymphocytes Percent Auto 2.2 % (18.0-42.0); Mean Corpuscular HGB Conc 34.6 g/dL (32.0-36.0); Mean Corpuscular Hemoglobin 33.7 pg (27.0-31.0); Mean Corpuscular Volume 97.1 fL (78.0-102.0); Mean Platelet Volume 8.7 fl (9.2-11.8); Monocytes Absolute Auto 0.32 K/mm3 (0.10-0.90); Monocytes Percent Auto 4.4 % (2.0-11.0); Neutrophils Absolute Auto 6.7 K/mm3 (1.7-7.2); Neutrophils Percent Auto 92.3 % (50.0-70.0); Platelet Count Result 218 K/mm3 (150-420); Red Blood Count 3.15 M/mm3 (4.20-5.40); Red Cell Distribution Width 12.8 % (11.6-14.4); White Blood Count 7.3 K/mm3 (4.8-10.8)
[2022-02-04 05:46] LABS: Alanine Aminotransferase 38 U/L (14-59); Albumin Level 2.5 g/dL (3.4-5.0); Alkaline Phosphatase 168 U/L (46-116); Anion Gap 8 mmol/L (8-16); Aspartate Amino Transferase 29 U/L (15-37); Bilirubin,Total 0.3 mg/dL (0.00-1.00); Blood Urea Nitrogen 27 mg/dL (7-18); Calcium 7.6 mg/dL (8.5-10.1); Carbon Dioxide 26 mmol/L (21-32); Chloride 103 mmol/L (98-108); Estimated CRCL calculation 23 ml/min; Estimated Glomerular Filt Rate 29; Glucose 124 mg/dL (70-99); Osmolality Calculated 290 mOsm/kg (285-295); Potassium 3.4 mmol/L (3.5-5.1); Sodium 137 mmol/L (136-145); Total Protein 6.2 g/dL (6.4-8.2)
--- NOTE | 2022-02-04 09:59 | PM.IMHP ---
H&P: HPI History of Present Illness Date/Time: 02/04/22 09:59 Chief Complaint: confusion, weakness and shortness of breath Narrative: This is a 61-year-old that presented to the emergency room complaining of shortness of breath, with confusion patient was found to have a urinary tract infection and was given Levaquin in the emergency room we will start her on Rocephin. Ms. Redd also had a elevated D-dimer we will do a VQ scan today is currently getting Lovenox we will switch her to oral she is found to have positive for PE. Patient currently has some acute kidney injury we will continue to monitor. We will keep patient another day just to make sure that the antibiotics are starting to work we sent off for urine culture currently vitals are potassium is 3.4, sodium 137, BUN 27, creatinine 1.79, RBCs 3.15, WBC 7.3, hemoglobin 10.6, platelets 218. Patient has remained afebrile she is not eating much we will add Ensure clear. Patient denies any pain at this time her lungs are clear she has not required any oxygen. Review of Systems Review of Systems: Weakness, shortness of breath, weakness All systems reviewed & are unremarkable except as noted in HPI and below PMFSH Past Medical History Medical History Adrenal cancer COPD (chronic obstructive pulmonary disease) History of lung cancer Surgical History Surgical History History of appendectomy History of lung biopsy Hx of tonsillectomy Status post complete hysterectomy Family History Family History Mother No problems noted. Other Diabetes mellitus Family history of alcoholism Family history of blood dyscrasia Family history of heart disease in male family member before age 55 Family history of seizure disorder Hypertension Social History Social History Smoking packs per day: 1 Smoking cigarettes per day: 20.0 Years smoked: 47 Smoking pack-years: 47.00 Smoking status: Current every day smoker Tobacco type: cigarettes Additional smoking assessment comments: smokes 1 pack per day Alcohol intake: former Substance use: never Substance use type: prescription drug Other substance usage details: ativan Gender identity (if verbalized by the patient): Female Spiritual care concerns: No Agree to blood products: Yes Comments At time as signature, I have reviewed and agree with nursing past medical, social, surgical and family history. Please see nursing chart for further information. There is no relevant family history pertinent to the presenting complaint. Meds Home Medications and Allergies Home Medications Medication Instructions Recorded Confirmed Type albuterol sulfate 90 mcg/actuation 2 puff inhalation QIDRT PRN 04/24/19 02/03/22 Rx aerosol inhaler (Proventil HFA) Shortness Of Breath 30 days #90 mcg benzonatate 100 mg capsule 200 mg PO TID PRN cough 30 days 04/24/19 02/03/22 Rx #180 caps docusate sodium 100 mg capsule 100 mg PO DAILY 30 days #30 caps 04/24/19 02/03/22 Rx gabapentin 300 mg capsule 300 mg PO BID 30 days #60 caps 04/24/19 02/03/22 Rx (Neurontin) guaifenesin 600 mg tablet, 1,200 mg PO Q12HR 30 days #120 tabs 04/24/19 02/03/22 Rx extended release 12 hr (Mucus Relief ER) ipratropium 0.5 mg-albuterol 3 mg 3 ml inhalation Q6H 30 days 04/24/19 02/03/22 Rx (2.5 mg base)/3 mL nebulization soln ipratropium bromide 0.02 % 2.5 ml inhalation Q6H shortness of 04/24/19 02/03/22 Rx solution for inhalation breath or wheezing 30 days #150 mL levothyroxine 100 mcg tablet 100 mcg PO DAILY@0630 30 days #30 04/24/19 02/03/22 Rx (Synthroid) tabs lorazepam 0.5 mg tablet 0.25 mg PO BID PRN anxiety #15 tabs 04/24/19 02/03/22 Rx lovastatin 20 mg tablet 10 mg PO QAM 30 days #
[2022-02-04] MEDS: POTASSIUM CHLORIDE 20 MEQ PACKET (FOR LIQUID) PO ×2 (10:16→16:54)
[2022-02-04] MEDS: PHENYTOIN SODIUM 100 MG EXTENDED RELEASE CAP PO ×3 (10:16→16:54)
[2022-02-04] MEDS: LEVOTHYROXINE SODIUM 100 MCG TABLET PO (10:17)
[2022-02-04] MEDS: GABAPENTIN 300 MG CAPSULE PO ×2 (10:17→16:53)
[2022-02-04] MEDS: SPIRONOLACTONE 25 MG TABLET PO (10:17)
[2022-02-04] MEDS: predniSONE 20 MG TABLET PO (10:17)
[2022-02-04] MEDS: MEGESTROL ACETATE (*CHEMO) ORAL SUSP 40 MG/ML SYR 400 MG PO ×2 (11:22→16:53)
[2022-02-04] MEDS: SPIRONOLACTONE 25 MG TABLET 50 MG PO (11:23)
[2022-02-04] MEDS: ALBUTEROL SULFATE (*SP) INHALER 2 PUFF INHALATION (12:37)
[2022-02-04 14:09] LABS: INR 1.1; Prothrombin Time 11.5 Seconds (9.50-12.10)
[2022-02-04 16:12] LABS: Basophils Absolute Auto 0.02 K/mm3 (0.00-0.10); Basophils Percent Auto 0.3 % (0.0-1.0); Hematocrit 29.5 % (35.0-49.0); Hemoglobin 10.3 g/dL (12.0-15.0); Immature Granulocyte Absolute 0.03 K/mm3 (0.00-0.00); Immature Granulocyte Percent A 0.5 % (0.0-0.0); Lymphocytes Absolute Auto 0.21 K/mm3 (1.10-4.50); Lymphocytes Percent Auto 3.4 % (18.0-42.0); Mean Corpuscular HGB Conc 34.9 g/dL (32.0-36.0); Mean Corpuscular Hemoglobin 33.6 pg (27.0-31.0); Mean Corpuscular Volume 96.1 fL (78.0-102.0); Mean Platelet Volume 8.7 fl (9.2-11.8); Monocytes Absolute Auto 0.19 K/mm3 (0.10-0.90); Monocytes Percent Auto 3.1 % (2.0-11.0); Neutrophils Absolute Auto 5.7 K/mm3 (1.7-7.2); Neutrophils Percent Auto 92.7 % (50.0-70.0); Platelet Count Result 194 K/mm3 (150-420); Red Blood Count 3.07 M/mm3 (4.20-5.40); Red Cell Distribution Width 12.3 % (11.6-14.4); White Blood Count 6.2 K/mm3 (4.8-10.8)
[2022-02-04 16:25] LABS: Partial Thromboplastin Time 29.6 SEC (23.90-30.70); Prothrombin Time 11.3 Seconds (9.50-12.10)
[2022-02-04] MEDS: WARFARIN (*PBKC) 5 MG TABLET PO (16:53)
[2022-02-04] MEDS: HEPARIN SODIUM 5,000 UNITS/ML VIAL 4500 UNITS IV PUSH (17:02)
[2022-02-04] MEDS: HEPARIN SOD/D5W 100 UNITS/ML 25,000 UNITS/250 ML BAG 11 UNITS IV CONT (17:12)
[2022-02-04] MEDS: IPRATROPIUM 0.5 MG/ALBUTEROL SULFATE 2.5 MG AMPUL.NEB 3 ML INHALATION (18:56)
[2022-02-04] MEDS: PHENYTOIN SODIUM 100 MG EXTENDED RELEASE CAP 200 MG BY MOUTH (20:34)
[2022-02-04] MEDS: VERAPAMIL HCL ER 120 MG TABLET PO (20:35)
[2022-02-04] MEDS: LORazepam (*CRX) 0.5 MG TABLET 0.25 MG PO (20:36)
[2022-02-04] MEDS: MONTELUKAST SODIUM 10 MG TABLET PO (20:36)
[2022-02-04] MEDS: MELATONIN 5 MG TABLET PO (20:36)
[2022-02-04] MEDS: ACETAMINOPHEN 325 MG TABLET 650 MG PO (22:53)
[2022-02-05] VITALS (19 sets, daily range): BP systolic 136–170; BP diastolic 63–80; PULSE 81–96; RESP 14–20; TEMP 36.9–37.6; O2SAT 92–100
[2022-02-05 00:04] LABS: INR 1.1; Partial Thromboplastin Time 114.8 SEC (23.90-30.70); Prothrombin Time 11.5 Seconds (9.50-12.10)
[2022-02-05] MEDS: IPRATROPIUM 0.5 MG/ALBUTEROL SULFATE 2.5 MG AMPUL.NEB 3 ML INHALATION ×5 (00:14→23:22)
--- NOTE | 2022-02-05 00:15 | PC.NURSE ---
aptt 114.8, will decrease heparin drip by 1ml/hr, RN taking care of patient aware
[2022-02-05] MEDS: ACETAMINOPHEN 325 MG TABLET 650 MG PO ×2 (03:28→20:32)
[2022-02-05 05:37] LABS: Basophils Absolute Auto 0.05 K/mm3 (0.00-0.10); Basophils Percent Auto 0.7 % (0.0-1.0); Eosinophils Absolute Auto 0.21 K/mm3 (0.02-0.50); Eosinophils Percent Auto 2.8 % (1.0-6.0); Hematocrit 29.3 % (35.0-49.0); Immature Granulocyte Absolute 0.03 K/mm3 (0.00-0.00); Immature Granulocyte Percent A 0.4 % (0.0-0.0); Lymphocytes Percent Auto 10.5 % (18.0-42.0); Mean Corpuscular HGB Conc 34.1 g/dL (32.0-36.0); Mean Corpuscular Volume 96.7 fL (78.0-102.0); Mean Platelet Volume 8.9 fl (9.2-11.8); Monocytes Percent Auto 11.8 % (2.0-11.0); Neutrophils Absolute Auto 5.6 K/mm3 (1.7-7.2); Neutrophils Percent Auto 73.8 % (50.0-70.0); Platelet Count Result 189 K/mm3 (150-420); Red Blood Count 3.03 M/mm3 (4.20-5.40); Red Cell Distribution Width 12.5 % (11.6-14.4); White Blood Count 7.6 K/mm3 (4.8-10.8)
[2022-02-05 05:49] LABS: Prothrombin Time 11.4 Seconds (9.50-12.10)
[2022-02-05] MEDS: LEVOTHYROXINE SODIUM 100 MCG TABLET PO (05:50)
[2022-02-05 06:24] LABS: Partial Thromboplastin Time 81.5 SEC (23.90-30.70)
--- NOTE | 2022-02-05 06:33 | PC.NURSE ---
APTT 81.5, no change in dose per heparin protocols
[2022-02-05] MEDS: POTASSIUM CHLORIDE 20 MEQ PACKET (FOR LIQUID) PO ×2 (08:36→17:22)
[2022-02-05] MEDS: MEGESTROL ACETATE (*CHEMO) ORAL SUSP 40 MG/ML SYR 400 MG PO ×2 (08:36→17:22)
[2022-02-05] MEDS: SPIRONOLACTONE 25 MG TABLET 50 MG PO ×2 (08:37→11:40)
[2022-02-05] MEDS: GABAPENTIN 300 MG CAPSULE PO ×2 (08:38→17:21)
[2022-02-05] MEDS: predniSONE 20 MG TABLET PO (08:38)
[2022-02-05] MEDS: PHENYTOIN SODIUM 100 MG EXTENDED RELEASE CAP 200 MG BY MOUTH ×2 (08:38→20:27)
[2022-02-05] MEDS: LOVASTATIN 10 MG TABLET PO (08:39)
--- NOTE | 2022-02-05 09:36 | PM.IMPN ---
Progress Note: A&P Assessment and Plan (1) Urinary tract infection: Qualifiers: Hematuria presence: without hematuria Urinary tract infection type: acute cystitis Qualified Code(s): N30.00 - Acute cystitis without hematuria Code(s): N39.0 - Urinary tract infection, site not specified Status: Acute Assessment and Plan: increase fluids IV antibiotic discussed with pharmacist Levaquin is not a good choice as it has a high risk of resistance . Pt allergy to Keflex is a red glow we will attempt Rocephin as it has a better success rate and monitor for allergic reaction as well as her kidney function is low and Rocephin is a better choice. gilmore catheter in place will dc in the morning if patient tolerates we will plan on sending her home on cefdinr (2) D-dimer, elevated: Code(s): R79.89 - Other specified abnormal findings of blood chemistry Status: Acute Assessment and Plan: Pt to have VQ scan if positive we will place on eliquis currently getting lovenox (3) Acute hyponatremia: Code(s): E87.1 - Hypo-osmolality and hyponatremia Status: Acute Assessment and Plan: stable sodium 137 willl continue to monitor (4) Metastatic disease: Code(s): C79.9 - Secondary malignant neoplasm of unspecified site Status: Acute Assessment and Plan: pt is still getting treatment q 2 weeks last treatment 2 weeks ago (5) GERD (gastroesophageal reflux disease): Code(s): K21.9 - Gastro-esophageal reflux disease without esophagitis Status: Acute Assessment and Plan: stable protonix (6) History of seizure: Code(s): Z87.898 - Personal history of other specified conditions Status: Acute Assessment and Plan: continue home medication (7) Hypertension: Code(s): I10 - Essential (primary) hypertension Status: Acute Assessment and Plan: stable monitor vitals give home medication (8) Hypothyroidism: Code(s): E03.9 - Hypothyroidism, unspecified Status: Acute Assessment and Plan: stable continue home medication (9) Pulmonary embolus: Code(s): I26.99 - Other pulmonary embolism without acute cor pulmonale Status: Acute Assessment and Plan: Heparin currently theraupetic coumadin INr 1.0 will continue with 5.0 today Plan Call and spoke with Dr. Luther who is balloon design printer oncologist and discussed elevated DD and starting patient on Heparin and Coumadin explained the reason why I did not do Eliquis and or Xarelto due to creatine level. Explained that concern was that he felt this may only be scar tissues as she just had a Ct scan he informed me that I should continue as I am doing and once discharge she is able to follow up with Dr Peres to see if he wants her to continue or not. Called and informed the with the update and informed him they wanted me to continue with the anticoagulation unless they don't want me to and they can sign ama for that care agreed to continue with anticoagulation. Subjective Date/time seen: 02/05/22 09:36 Interval history: Patient is really wanting to go home although her INr is not where it needs to be. She will continue on the heparin and Coumadin at this time . She is therapeutic w the heparin we continue to monitor.Patient is doing well at this time . Review of Systems Review of Systems: All systems reviewed & are unremarkable except as noted in HPI and below Exam Narrative: GENERAL:illl-appearing, frail, and in no acute distress. HEAD:Normocephalic, atraumatic. EYES: PERRLA . ENT: Nares clear, no rhinorrhea or epistaxis. Mucous membranes dry CHEST: Clear to auscultation. No respiratory distress. HEART: Regular rate and rhythm. Normal peripheral pulses. ABDOMEN: Soft, nontender, nondistended, normal active bowel sounds. EXTREMITIES: Normal range of motion. No edema. SKIN: Warm, dryflaky , no r
--- NOTE | 2022-02-05 09:52 | PC.NURSE ---
nutrition consultant has talked with patient, , and staff sonographer oncologist (Homa) re ? pe tx and coumadin. they are all on agreeing terms of there will always be some scaring and can not always rule out cancer vs pe. need to treat as if it is pe at this time.
[2022-02-05] MEDS: PANTOPRAZOLE SODIUM IV 40 MG VIAL IV PUSH (10:41)
[2022-02-05 12:23] LABS: Partial Thromboplastin Time 62.6 SEC (23.90-30.70)
[2022-02-05] MEDS: HEPARIN SODIUM 5,000 UNITS/ML VIAL 2500 UNITS IV PUSH (12:50)
--- NOTE | 2022-02-05 13:04 | PC.NURSE ---
aPTT lab resultsback. Per protocol 2500 bolus and increase to 11 mls
--- NOTE | 2022-02-05 14:52 | PC.NURSE ---
Status changed to inpatient
[2022-02-05] MEDS: HEPARIN SOD/D5W 100 UNITS/ML 25,000 UNITS/250 ML BAG 11 UNITS IV CONT (16:26)
[2022-02-05] MEDS: PHENYTOIN SODIUM 100 MG EXTENDED RELEASE CAP PO (17:21)
[2022-02-05] MEDS: WARFARIN (*PBKC) 5 MG TABLET PO (17:21)
[2022-02-05 19:03] LABS: Partial Thromboplastin Time 76.3 SEC (23.90-30.70)
--- NOTE | 2022-02-05 19:23 | PC.NURSE ---
APTT 76.3, per heparin protocol no change in dose needed, Heparin continues at 11,000Units/hr.
[2022-02-05] MEDS: MELATONIN 5 MG TABLET PO (20:28)
[2022-02-05] MEDS: MONTELUKAST SODIUM 10 MG TABLET PO (20:29)
[2022-02-05] MEDS: LORazepam (*CRX) 0.5 MG TABLET 0.25 MG PO (20:31)
[2022-02-05] MEDS: VERAPAMIL HCL ER 120 MG TABLET PO (20:37)
[2022-02-06] VITALS (15 sets, daily range): BP systolic 149–177; BP diastolic 61–94; PULSE 82–94; RESP 15–20; TEMP 36.6–37.4; O2SAT 94–98
[2022-02-06] MEDS: HEPARIN SODIUM 5,000 UNITS/ML VIAL 2500 UNITS IV PUSH (00:57)
--- NOTE | 2022-02-06 01:03 | PC.NURSE ---
aPTT 69, per protocol Heparin drip increased to 1200 units per hour, and Heparin 2500 unit bolus IVP given. Tolerated well.
[2022-02-06] MEDS: LEVOTHYROXINE SODIUM 100 MCG TABLET PO (06:31)
[2022-02-06] MEDS: IPRATROPIUM 0.5 MG/ALBUTEROL SULFATE 2.5 MG AMPUL.NEB 3 ML INHALATION ×4 (06:43→23:40)
[2022-02-06 07:03] LABS: Basophils Absolute Auto 0.03 K/mm3 (0.00-0.10); Basophils Percent Auto 0.4 % (0.0-1.0); Eosinophils Absolute Auto 0.18 K/mm3 (0.02-0.50); Eosinophils Percent Auto 2.7 % (1.0-6.0); Hematocrit 27.4 % (35.0-49.0); Hemoglobin 9.4 g/dL (12.0-15.0); Immature Granulocyte Absolute 0.03 K/mm3 (0.00-0.00); Immature Granulocyte Percent A 0.4 % (0.0-0.0); Lymphocytes Absolute Auto 1.09 K/mm3 (1.10-4.50); Lymphocytes Percent Auto 16.1 % (18.0-42.0); Mean Corpuscular HGB Conc 34.3 g/dL (32.0-36.0); Mean Corpuscular Hemoglobin 33.1 pg (27.0-31.0); Mean Corpuscular Volume 96.5 fL (78.0-102.0); Mean Platelet Volume 9.1 fl (9.2-11.8); Monocytes Absolute Auto 0.83 K/mm3 (0.10-0.90); Monocytes Percent Auto 12.3 % (2.0-11.0); Neutrophils Absolute Auto 4.6 K/mm3 (1.7-7.2); Neutrophils Percent Auto 68.1 % (50.0-70.0); Platelet Count Result 184 K/mm3 (150-420); Red Blood Count 2.84 M/mm3 (4.20-5.40); Red Cell Distribution Width 12.6 % (11.6-14.4); White Blood Count 6.8 K/mm3 (4.8-10.8)
[2022-02-06 07:11] LABS: INR 1.5
[2022-02-06 07:18] LABS: Alanine Aminotransferase 39 U/L (14-59); Albumin Level 2.5 g/dL (3.4-5.0); Alkaline Phosphatase 153 U/L (46-116); Anion Gap 9 mmol/L (8-16); Aspartate Amino Transferase 22 U/L (15-37); Bilirubin,Total 0.2 mg/dL (0.00-1.00); Blood Urea Nitrogen 25 mg/dL (7-18); Carbon Dioxide 25 mmol/L (21-32); Chloride 106 mmol/L (98-108); Estimated CRCL calculation 26 ml/min; Estimated Glomerular Filt Rate 32; Glucose 102 mg/dL (70-99); Osmolality Calculated 294 mOsm/kg (285-295); Potassium 3.4 mmol/L (3.5-5.1); Sodium 140 mmol/L (136-145); Total Protein 6.1 g/dL (6.4-8.2)
[2022-02-06 07:43] LABS: Prothrombin Time 15.8 Seconds (9.50-12.10)
--- NOTE | 2022-02-06 08:10 | PC.NURSE ---
hiwot mercado aware of critical ptt and that we paused heparin gtt. and will follow heparin protocol.
[2022-02-06] MEDS: MEGESTROL ACETATE (*CHEMO) ORAL SUSP 40 MG/ML SYR 400 MG PO ×2 (09:03→17:19)
[2022-02-06] MEDS: PHENYTOIN SODIUM 100 MG EXTENDED RELEASE CAP 200 MG BY MOUTH ×2 (09:04→20:35)
[2022-02-06] MEDS: POTASSIUM CHLORIDE 20 MEQ PACKET (FOR LIQUID) PO ×2 (09:04→17:19)
[2022-02-06] MEDS: SPIRONOLACTONE 25 MG TABLET 50 MG PO ×2 (09:05→12:35)
[2022-02-06] MEDS: GABAPENTIN 300 MG CAPSULE PO ×2 (09:06→17:20)
[2022-02-06] MEDS: predniSONE 20 MG TABLET PO (09:06)
[2022-02-06] MEDS: LOVASTATIN 10 MG TABLET PO (09:06)
[2022-02-06] MEDS: PANTOPRAZOLE SODIUM IV 40 MG VIAL IV PUSH (09:07)
[2022-02-06] MEDS: MAG HYDROX/ALUMINUM HYD/SIMETH 30 ML, PHENobarb/HYOSCY/ATROPINE/SCOP 32.4 MG, LIDOCAINE... PO (10:10)
--- NOTE | 2022-02-06 11:18 | WPDPN ---
Progress Note: A&P Assessment and Plan (1) Urinary tract infection: Qualifiers: Hematuria presence: without hematuria Urinary tract infection type: acute cystitis Qualified Code(s): N30.00 - Acute cystitis without hematuria Code(s): N39.0 - Urinary tract infection, site not specified Status: Acute Assessment and Plan: increase fluids IV antibiotic discussed with pharmacist Levaquin is not a good choice as it has a high risk of resistance . Pt allergy to Keflex is a red glow we will attempt Rocephin as it has a better success rate and monitor for allergic reaction as well as her kidney function is low and Rocephin is a better choice. gilmore catheter in place will dc in the morning if patient tolerates we will plan on sending her home on cefdinr (2) D-dimer, elevated: Code(s): R79.89 - Other specified abnormal findings of blood chemistry Status: Acute Assessment and Plan: Pt to have VQ scan if positive we will place on eliquis currently getting lovenox changed to heparin and oral coumadin INr today b1.5 (3) Acute hyponatremia: Code(s): E87.1 - Hypo-osmolality and hyponatremia Status: Acute Assessment and Plan: stable sodium 137 willl continue to monitor (4) Metastatic disease: Code(s): C79.9 - Secondary malignant neoplasm of unspecified site Status: Acute Assessment and Plan: pt is still getting treatment q 2 weeks last treatment 2 weeks ago (5) GERD (gastroesophageal reflux disease): Code(s): K21.9 - Gastro-esophageal reflux disease without esophagitis Status: Acute Assessment and Plan: stable protonix (6) History of seizure: Code(s): Z87.898 - Personal history of other specified conditions Status: Acute Assessment and Plan: continue home medication (7) Hypertension: Code(s): I10 - Essential (primary) hypertension Status: Acute Assessment and Plan: stable monitor vitals give home medication (8) Hypothyroidism: Code(s): E03.9 - Hypothyroidism, unspecified Status: Acute Assessment and Plan: stable continue home medication (9) Pulmonary embolus: Code(s): I26.99 - Other pulmonary embolism without acute cor pulmonale Status: Acute Assessment and Plan: Heparin currently theraupetic coumadin INr 1.0 will continue with 5.0 today INr 1.5 will continue with the 5mg oral today. Plan 02/05/2022 Call and spoke with Dr. Luther who is foot and ankle surgeon oncologist and discussed elevated DD and starting patient on Heparin and Coumadin explained the reason why I did not do Eliquis and or Xarelto due to creatine level. Explained that concern was that he felt this may only be scar tissues as she just had a Ct scan he informed me that I should continue as I am doing and once discharge she is able to follow up with Dr Peres to see if he wants her to continue or not. Called and informed the with the update and informed him they wanted me to continue with the anticoagulation unless they don't want me to and they can sign ama for that care agreed to continue with anticoagulation. Subjective Date/time seen: 02/06/22 11:18 Interval history: Patient is not feeling well and she is having heart burn and is wanting to go home . Patient will stay she was given a GI cocktail to see if it combats some of the reflux. Patient drinks a lot of coffee which may be causing some of her problems at this time. Exam Narrative: GENERAL:illl-appearing, frail, PALe and in no acute distress. HEAD:Normocephalic, atraumatic. EYES: PERRLA . ENT: Nares clear, no rhinorrhea or epistaxis. Mucous membranes dry CHEST: Clear to auscultation. No respiratory distress. HEART: Regular rate and rhythm. Normal peripheral pulses. ABDOMEN: Soft, nontender, nondistended, normal active bowel sounds. EXTREMITIES: Normal range of motion. No edema.
[2022-02-06 14:16] LABS: Partial Thromboplastin Time 61.5 SEC (23.90-30.70)
[2022-02-06] MEDS: HEPARIN SOD/D5W 100 UNITS/ML 25,000 UNITS/250 ML BAG 11 UNITS IV CONT ×2 (14:28→17:24)
[2022-02-06] MEDS: PHENYTOIN SODIUM 100 MG EXTENDED RELEASE CAP PO (17:20)
[2022-02-06] MEDS: WARFARIN (*PBKC) 5 MG TABLET PO (17:20)
--- NOTE | 2022-02-06 18:29 | PC.NURSE ---
Lab in ER at this time
--- NOTE | 2022-02-06 20:30 | PC.NURSE ---
aPTT at 139.0, per Heparin protocol IV drip held for 1 hour, will restart at 2130 at 9mL/hr. Pt aware, states understanding.
[2022-02-06] MEDS: MELATONIN 5 MG TABLET PO (20:35)
[2022-02-06] MEDS: LORazepam (*CRX) 0.5 MG TABLET 0.25 MG PO (20:36)
[2022-02-06] MEDS: VERAPAMIL HCL ER 120 MG TABLET PO (20:36)
[2022-02-06] MEDS: MONTELUKAST SODIUM 10 MG TABLET PO (20:36)
[2022-02-07] VITALS: BP 162/75; PULSE 86; RESP 16; TEMP 36.6; O2SAT 99
[2022-02-07 02:21] LABS: Partial Thromboplastin Time 60.9 SEC (23.90-30.70)
[2022-02-07] MEDS: HEPARIN SODIUM 5,000 UNITS/ML VIAL 2500 UNITS IV PUSH (02:59)
--- NOTE | 2022-02-07 03:00 | PC.NURSE ---
aPTT 60.9, Heparin bolus of 2500 units given and Heparin drip increased to 10mL/hr per Heparin protocol. Pt aware and states understanding.
[2022-02-07] MEDS: IPRATROPIUM 0.5 MG/ALBUTEROL SULFATE 2.5 MG AMPUL.NEB 3 ML INHALATION (05:28)
[2022-02-07 05:30] VITALS: PULSE 84; RESP 16; O2SAT 97
[2022-02-07 05:38] VITALS: PULSE 86; RESP 18; O2SAT 99
[2022-02-07] MEDS: LEVOTHYROXINE SODIUM 100 MCG TABLET PO (05:47)
[2022-02-07 08:00] VITALS: BP 138/75; PULSE 78; RESP 14; TEMP 36.3; O2SAT 97
[2022-02-07 08:37] LABS: Partial Thromboplastin Time 97.4 SEC (23.90-30.70)
--- NOTE | 2022-02-07 08:50 | PC.NURSE ---
PTT result came back on patient at 97.4. No change in rate, not bolus per protocol.
[2022-02-07] MEDS: GABAPENTIN 300 MG CAPSULE PO (08:52)
[2022-02-07] MEDS: SPIRONOLACTONE 25 MG TABLET 50 MG PO (08:52)
[2022-02-07] MEDS: predniSONE 20 MG TABLET PO (08:53)
[2022-02-07] MEDS: PHENYTOIN SODIUM 100 MG EXTENDED RELEASE CAP 200 MG BY MOUTH (08:53)
[2022-02-07] MEDS: LOVASTATIN 10 MG TABLET PO (08:53)
[2022-02-07] MEDS: POTASSIUM CHLORIDE 20 MEQ PACKET (FOR LIQUID) PO (08:54)
[2022-02-07] MEDS: MEGESTROL ACETATE (*CHEMO) ORAL SUSP 40 MG/ML SYR 400 MG PO (08:55)
[2022-02-07] MEDS: PANTOPRAZOLE SODIUM IV 40 MG VIAL IV PUSH (08:58)
[2022-02-07 09:02] LABS: INR 3.2; Prothrombin Time 32.2 Seconds (9.50-12.10)
--- NOTE | 2022-02-07 10:07 | PM.DS ---
DS: Admitting Diagnosis Discharge Date 02/07/2022 Admitting Diagnosis UTI, PE DS: Discharge Diagnosis Discharge Diagnosis (1) Urinary tract infection: Qualifiers: Hematuria presence: without hematuria Urinary tract infection type: acute cystitis Qualified Code(s): N30.00 - Acute cystitis without hematuria Code(s): N39.0 - Urinary tract infection, site not specified Status: Acute Assessment and Plan: increase fluids IV antibiotic discussed with pharmacist Levaquin is not a good choice as it has a high risk of resistance . Pt allergy to Keflex is a red glow we will attempt Rocephin as it has a better success rate and monitor for allergic reaction as well as her kidney function is low and Rocephin is a better choice. gilmore catheter in place will dc in the morning if patient tolerates we will plan on sending her home on cefdinr (2) D-dimer, elevated: Code(s): R79.89 - Other specified abnormal findings of blood chemistry Status: Acute Assessment and Plan: Pt to have VQ scan if positive we will place on eliquis currently getting lovenox changed to heparin and oral coumadin INr today b1.5 (3) Acute hyponatremia: Code(s): E87.1 - Hypo-osmolality and hyponatremia Status: Acute Assessment and Plan: stable sodium 137 willl continue to monitor (4) Metastatic disease: Code(s): C79.9 - Secondary malignant neoplasm of unspecified site Status: Acute Assessment and Plan: pt is still getting treatment q 2 weeks last treatment 2 weeks ago (5) GERD (gastroesophageal reflux disease): Code(s): K21.9 - Gastro-esophageal reflux disease without esophagitis Status: Acute Assessment and Plan: stable protonix (6) History of seizure: Code(s): Z87.898 - Personal history of other specified conditions Status: Acute Assessment and Plan: continue home medication (7) Hypertension: Code(s): I10 - Essential (primary) hypertension Status: Acute Assessment and Plan: stable monitor vitals give home medication (8) Hypothyroidism: Code(s): E03.9 - Hypothyroidism, unspecified Status: Acute Assessment and Plan: stable continue home medication (9) Pulmonary embolus: Code(s): I26.99 - Other pulmonary embolism without acute cor pulmonale Status: Acute Assessment and Plan: Heparin currently theraupetic coumadin INr 1.0 will continue with 5.0 today INr 1.5 will continue with the 5mg oral today. Plan 02/05/2022 Call and spoke with Dr. Luther who is mainframe applications developer oncologist and discussed elevated DD and starting patient on Heparin and Coumadin explained the reason why I did not do Eliquis and or Xarelto due to creatine level. Explained that concern was that he felt this may only be scar tissues as she just had a Ct scan he informed me that I should continue as I am doing and once discharge she is able to follow up with Dr Peres to see if he wants her to continue or not. Called and informed the with the update and informed him they wanted me to continue with the anticoagulation unless they don't want me to and they can sign ama for that care agreed to continue with anticoagulation. DS: Summary Hospital Course Reason for hospitalization: Dyspnea, Pulmonary Embolus, lung Cancer Hospital Course: This 61-year-old female that was admitted with shortness of breath was found to have a pulmonary embolus or high probability. Patient has a past medical history of small cell carcinoma I had called and had a discussion with patient's oncologist mainframe applications developer who informed me to go ahead and treat patient with anticoagulation and she can follow-up with her oncologist to determine if he wanted her to continue to be treated at this time as the VQ scan may be a false positive. Patient very adamant about going home and would rather be in the comforts of her
--- NOTE | 2022-02-07 10:15 | PC.NURSE ---
Patient's assisted patient to bathroom.
--- NOTE | 2022-02-07 11:44 | PC.NURSE ---
Discharge instructions reviewed with patient and her . Reviewed F/U appointment with Dr. Fajardo, to have lab drawn on 02/10. Patient has appointment with Dr. Peres on 02/10 also. Reviewed caution with coumadisn. Taken to private vehicle by wheelchair
--- NOTE | 2022-02-10 09:07 | PC.NURSE ---
Pt states she received and understood her discharge instructions. Pt has no other comments.
== END 2022-02-07 11:35 | disposition home or self-care (01) | DRG 176 ==
LOC: CHSED 22:34 → CHS2ND 02-04 07:09
PROVIDERS: Nurse Practitioner Family; Admitting Provider Internal Medicine; Emergency Provider Emergency Medicine; PCP Internal Medicine; Visit Provider Internal Medicine
DX: I26.99 Other pulmonary embolism without acute cor pulmonale (principal); N39.0 Urinary tract infection, site not specified; E87.1 Hypo-osmolality and hyponatremia; C34.90 Malignant neoplasm of unspecified part of unspecified bronchus or lung; C79.9 Secondary malignant neoplasm of unspecified site; I10 Essential (primary) hypertension; E03.9 Hypothyroidism, unspecified; J44.9 Chronic obstructive pulmonary disease, unspecified; K21.9 Gastro-esophageal reflux disease without esophagitis; R56.9 Unspecified convulsions; F17.210 Nicotine dependence, cigarettes, uncomplicated; Z79.899 Other long term (current) drug therapy
CPT/HCPCS: 36415; 70450; 71045; 78580; 80053; 81001; 83605; 83735; 83880; 84484; 85025; 85380; 85610; 85730; 86140; 87040; 87077; 87086; 87088; 87186; 87426; 93005; 94640; 96361; 96365; 96366; 96367; 96368; 96372; 96375; 99285; A9270; A9540; C9113; C9803; G0378; J0696; J1644; J1650; J1956; J3480; J7030; J7512

== ENCOUNTER 2022-02-18 13:15 | Outpatient (RCR) | payer MEDICARE, MEDICAID, SELFPAY ==
--- NOTE | 2022-02-18 14:12 | PTOPEVAL1 ---
Assessment and note entered by Loraine Pace DPT Evaluation Information Assessment Status Evaluation Diagnosis Deconditioning and gait instability Onset 02/15/2022 Subjective Information Pt reports that she has been noticing worsening of balance and strength. She reports this is partly due to cancer diagnoses. Pt reports frequent falls (3 in the last year) that occurred when turning. Pt denies dizziness or lightheadedness. Pt has a SPC that she uses when out and about for long distances but does not use at home. She has a walker as well but doesn't currently use. She has one small step to enter her home. Pt reports that she lives in a home with her ex- as he has come back to help her with house activities. Her daughter also visits frequently to help with cleaning and graphic user interface designer. She has a shower chair in her shower and grab bars in the bathroom. She reports the most unsteadiness when walking or turning in her home. Pt wants to get stronger and feel more steady as needed for walking. Reported Pain Level Pain Score 0: Self Report Assessment PT Clinical Summary Pt presents to physical therapy with lower extremity weakness and impaired static and dynamic balance secondary to cancer treatment. She demonstrates the most difficulty with activities that require a narrow base of support or visual suppression and she demonstrated impaired somatosensory integration. Her current deficits place her at an increase risk for falls and impair her safety with household and functional activities. She was provided with an HEP focused on improving LE strength and static balance within her safety. She will benefit from skilled PT to imrpove the aforementioned impairments, reduce risk for falls, and improve independence with functional and recreational activities. Plan of Care Interventions Gait Training,Neuro Re-education,Patient/Caregiver Educati,Therapeutic Activities,Therapeutic Exercise PT Services Indicated Yes Treatment Frequency and 2x week for 12 visits Duration These treatments will address the objective and functional deficits as defined above. The patient will be advanced safely and appropriately in order for the patient to progress towards his/her prior level of function. Additional exercises will be introduced and as well as a comprehensive home exercise program upon discharge, if needed, ?to ensure carryover of functional gains achieved in the clinic. This
--- NOTE | 2022-04-21 08:57 | BUPTOPEVAL1 ---
Assessment and note entered by JT File, PT Evaluation Information Assessment Status Re-evaluation Diagnosis Deconditioning and gait instability Onset 02/15/2022 Subjective Information patient reports she has had no falls, but continues to feel unsteady with her balance. she reports she is not using an AD, but has to reach out and grab for objects to steady herself. Assessment PT Clinical Summary mrs. capps continues to display high fall risk per the tinetti, TUG, and 5x sit to stand. she is making progress in her strength, balance, and transfer safety. however, she continues to lack achivement of goals or signifcant improvement in balance/safety. she would do well to continue skilled PT with focus on further improvement of strength, stability, balance, and safety to achieve goals and reduce risk of fall or injury to self. Plan of Care Interventions Gait Training,Neuro Re-education,Patient/Caregiver Educati,Therapeutic Activities,Therapeutic Exercise PT Services Indicated Yes Treatment Frequency and 2x weekly for 6 more visits Duration These treatments will address the objective and functional deficits as defined above. The patient will be advanced safely and appropriately in order for the patient to progress towards his/her prior level of function. Additional exercises will be introduced and as well as a comprehensive home exercise program upon discharge, if needed, ?to ensure carryover of functional gains achieved in the clinic. This treatment plan has been reviewed and agreement upon by the patient.
== END 2022-05-03 16:28 | disposition home or self-care (01) ==
LOC: CHSPT 13:15
PROVIDERS: PCP Internal Medicine; Visit Provider Internal Medicine
DX: R26.81 Unsteadiness on feet (principal)
CPT/HCPCS: 97110; 97112; 97161; 97530

== ENCOUNTER 2022-02-25 13:14 | Outpatient (CLI) | payer MEDICARE, SELFPAY ==
[2022-02-25 13:29] LABS: Basophils Absolute Auto 0.04 K/mm3 (0.00-0.10); Basophils Percent Auto 0.3 % (0.0-1.0); Eosinophils Absolute Auto 0.01 K/mm3 (0.02-0.50); Eosinophils Percent Auto 0.1 % (1.0-6.0); Hematocrit 35.4 % (35.0-49.0); Hemoglobin 12.5 g/dL (12.0-15.0); Immature Granulocyte Absolute 0.06 K/mm3 (0.00-0.00); Immature Granulocyte Percent A 0.5 % (0.0-0.0); Lymphocytes Absolute Auto 0.52 K/mm3 (1.10-4.50); Lymphocytes Percent Auto 4.4 % (18.0-42.0); Mean Corpuscular HGB Conc 35.3 g/dL (32.0-36.0); Mean Corpuscular Hemoglobin 34.5 pg (27.0-31.0); Mean Corpuscular Volume 97.8 fL (78.0-102.0); Mean Platelet Volume 8.6 fl (9.2-11.8); Monocytes Absolute Auto 0.32 K/mm3 (0.10-0.90); Monocytes Percent Auto 2.7 % (2.0-11.0); Neutrophils Absolute Auto 10.9 K/mm3 (1.7-7.2); Platelet Count Result 264 K/mm3 (150-420); Red Blood Count 3.62 M/mm3 (4.20-5.40); Red Cell Distribution Width 12.7 % (11.6-14.4); White Blood Count 11.9 K/mm3 (4.8-10.8)
[2022-02-25 13:56] LABS: Alanine Aminotransferase 46 U/L (14-59); Alkaline Phosphatase 200 U/L (46-116); Anion Gap 7 mmol/L (8-16); Aspartate Amino Transferase 27 U/L (15-37); Bilirubin,Total 0.3 mg/dL (0.00-1.00); Blood Urea Nitrogen 26 mg/dL (7-18); Calcium 8.1 mg/dL (8.5-10.1); Carbon Dioxide 28 mmol/L (21-32); Chloride 98 mmol/L (98-108); Estimated Glomerular Filt Rate 33; Free T3 1.64 pg/mL (2.18-3.98); Free T4 Free Thyroxine 1.15 ng/dL (0.76-1.46); Glucose 127 mg/dL (70-99); Magnesium 2.9 mg/dL (1.8-2.4); Osmolality Calculated 282 mOsm/kg (285-295); Phosphorus 3.4 mg/dL (2.6-4.7); Potassium 3.7 mmol/L (3.5-5.1); Sodium 133 mmol/L (136-145); Thyroid Stimulating Hormone 2.83 uIU/mL (0.36-3.74); Total Protein 7.1 g/dL (6.4-8.2)
[2022-02-25 14:15] LABS: CRP 9.9 mg/dL (0.0-0.9); Phenytoin Dilantin 12 ug/mL (10-20)
[2022-02-25 14:19] LABS: Ammonia < 10 umol/L (11-32)
[2022-02-25 15:19] LABS: Phosphorus 3.5 mg/dL (2.6-4.7)
[2022-03-01 08:18] LABS: Methylmalonic Acid 961 nmol/L (87-318)
[2022-03-01 12:52] LABS: Red Blood Cell Folate 920 ng/mL RBC (>280)
== END 2022-02-25 13:15 | disposition home or self-care (01) ==
LOC: CHSLAB 13:16
PROVIDERS: PCP Internal Medicine; Visit Provider Internal Medicine
DX: R53.1 Weakness (principal); R42 Dizziness and giddiness; E83.51 Hypocalcemia; D64.9 Anemia, unspecified; R41.0 Disorientation, unspecified; G40.909 Epilepsy, unspecified, not intractable, without status epilepticus
CPT/HCPCS: 36415; 80053; 80185; 82140; 82747; 83735; 83921; 84100; 84439; 84443; 84481; 85025; 86140

== ENCOUNTER 2022-06-08 18:17 | Observation (INO) | payer MEDICARE, MEDICAID, SELFPAY ==
[2022-06-08] VITALS (13 sets, daily range): BP systolic 159–190; BP diastolic 83–94; PULSE 80–86; RESP 18–20; TEMP 36.5–36.7; O2SAT 93–97; BMI 19.6
--- NOTE | ~2022-06-08 | CT_ITS ---
EXAMINATION: CT brain wo con DATE: 06/08/2022 19:56 INDICATION: head injury . TECHNIQUE: Computed tomography (CT) of the head was performed . Comment 02/03/[address] The mA was adjusted according to patient size. Iterative reconstruction technique was employed. T he dose-length product was 605.33 mGy-cm. COMPARISON: None. FINDINGS: No acute intracranial hemorrhage or extra-axial fluid collection. No hydrocephalus, mass, or herniation. No acute ischemic infarct. Unremarkable dural venous sinus attenuation. No acute osseous abnormality. Trace left mastoid effusion, the remaining aerated spaces are clear. Mild atrophy and severe chronic white matter change, the latter presumably secondary to radiation lucrecia nge. Hyperdense cations foci along the sulci and gyri of the right sylvian fissure, likely representi ng small volume subarachnoid hemorrhage with adjacent laminar necrosis. Atherosclerotic intracranial calcification. Bilateral lens replacements. IMPRESSION: Small volume subarachnoid hemorrhage with adjacent laminar necrosis in the right sylvian fissure. Results reported telephonically to Dr. Hernandez by Dr. Singh at 8:05 PM on 06/08/2022. Reviewed, dictated and finalized at location K. ARIN TEACHER IMPRESSION: Small volume subarachnoid hemorrhage with adjacent laminar necrosis in the righ t sylvian fissure. Results reported telephonically to Dr. Hernandez by Dr. Singh at 8:05 PM on 06/08.
--- NOTE | ~2022-06-08 | XR_ITS ---
EXAMINATION: XR chest 1V portable Exam Date/Time: 06/08/2022 19:50 PROTOTYPE MACHINE OPERATOR HISTORY: SOB, INCREASED WEAKNESS/CONFUSION/MULTI FALLS RECENTLY Comparison: 02/03/2022. RESULT: Lines, tubes, and devices: Implanted right chest port, terminating in the distal SVC. Lungs and pleura: Chronic unchanged fibrolinear and pleural scar in the right upper lobe with volume loss and hilar retraction. No focal consolidation. Minimal streaky bibasilar opacities, likely repre senting atelectasis. Cardiomediastinal silhouette: Stable. Other: No acute osseous or upper abdominal finding. IMPRESSION: No acute cardiopulmonary process. Reviewed, dictated and finalized at location K. OTYPE MACHINE OPERATOR
--- NOTE | ~2022-06-08 | CT_ITS ---
EXAMINATION: CT abdomen pelvis wo con DATE: 06/08/2022 19:58 INDICATION: metastatic cancer, multi staging of bruising all over body TECHNIQUE: Computed tomography (CT) of the abdomen and pelvis was performed without intravenous contr ast. Automated exposure control and iterative reconstruction technique were employed. The dose-length product was 444.30 mGy-cm. COMPARISON: 07/14/2009, images only. FINDINGS: Lower thorax: Emphysematous and senescent change. Dependent atelectasis/scar. Scattered tree-in-bud o pacities. Mitral and coronary artery calcification. Liver: Normal. Biliary/Gallbladder: Gallbladder is absent. No bile duct dilation. Pancreas: No mass or duct dilation. Spleen: Normal. Adrenals:No mass. Kidneys: Hemorrhagic/proteinaceous cyst in the right upper renal pole. GI tract: No small or large bowel dilation. Appendix not visualized. Hypermobile cecum. Diverticulosi s without diverticulitis. Mesentery/Peritoneum: No ascites, mass, or free air. Retroperitoneum: No mass. Atherosclerotic abdominal aortic and/or arterial calcifications. Small fusi form abdominal aortic aneurysm. Pelvis: Urinary bladder wall thickening and inflammation. The uterus is surgically absent. Soft Tissues: Soft tissues and body wall unremarkable. Bones: No acute osseous finding. IMPRESSION: Cystitis. Otherwise, no acute abdominopelvic process detected Reviewed, dictated and finalized at location K. CAL CASH POSTER
--- NOTE | 2022-06-08 18:30 | ED.FALL ---
HPI - Fall General Chief Complaint: Fall Stated Complaint: fell twice yesterday, disorientated Time Seen by Provider: 06/08/22 18:24 Source: patient Mode of arrival: ambulatory Limitations: no limitations History of Present Illness HPI Narrative: 62-year-old female with non-small cell lung cancer diagnosed in 2018 status post RT and chemo with Mets to mediastinal lymph nodes and left adrenal on current chemo, hypertension, hypothyroidism, CKD, COPD on home oxygen, recently diagnosed pulmonary embolism , arthritis, atrial flutter presents to the ER after -- recurrent falls. The patient had 2 falls yesterday. -- Altered mental status. The patient has been disoriented. -- Right-sided weakness MD complaint: fall Onset (ago): day(s) ( disorientation since yesterday.) Fall from: standing Fall witnessed: no Place fall occurred: home Loss of consciousness: unsure Symptoms prior to fall: none Location of injury: other ( No obvious site of injury noted. She has bruising of the right forearm) Associated symptoms (after fall): denies Related Data Home Medications Medication Instructions Recorded Confirmed aripiprazole See Rx Instructions .Route .COMPLEX 02/04/22 06/08/22 fluticasone 500 mcg-salmeterol 50 1 inh inhalation BID 02/04/22 06/08/22 mcg/dose blistr powdr for inhalation (Advair Diskus) phenytoin sodium extended 100 mg See Rx Instructions .Route .COMPLEX 02/04/22 06/08/22 capsule (Dilantin Extended) spironolactone 50 mg tablet 50 mg PO BID 02/04/22 06/08/22 umeclidinium 62.5 mcg/actuation 1 inh inhalation DAILY 02/04/22 06/08/22 blister powder for inhalation (Incruse Ellipta) Allergies Allergy/AdvReac Type Severity Reaction Status Date / Time cephalexin Allergy Unknown red glow Verified 06/08/22 18:36 Penicillins Allergy Unknown Unknown Verified 06/08/22 18:36 Review of Systems Review of Systems: All systems reviewed & are unremarkable except as noted in HPI and below Constitutional: Constitutional: Reports as per HPI and Reports no additional constitutional complaints Eyes: Eyes: Reports as per HPI and Reports no additional eye complaints ENT: Reports system reviewed and no additional complaints, except as documented and Reports as per HPI Cardiovascular: Cardiovascular: Reports as per HPI and Reports no additional cardiovascular complaints Respiratory: Respiratory: Reports as per HPI, Reports cough and Reports dyspnea Gastrointestinal: Gastrointestinal: Reports as per HPI and Reports no additional gastrointestinal complaints Genitourinary: Genitourinary: Reports no additional female genitourinary complaints and Reports as per HPI Musculoskeletal: Musculoskeletal: Reports no additional musculoskeletal complaints and Reports as per HPI Integumentary/Breasts: Skin/Breast: Reports system reviewed and no additional complaints, except as docu and Reports as per HPI Comments: right arm erythema Neurologic: Reports system reviewed and no additional complaints, except as documented and Reports as per HPI Comments: right-sided weakness confused Psychiatric: Psychiatric: Reports no additional psychiatric complaints Endocrine: Endocrine: Reports no additional endocrine complaints and Reports as per HPI Hematologic/Lymphatic: Hematologic/Lymphatic: Reports no additional hematologic/lymphatic complaints and Reports as per HPI Allergic/Immunologic: Allergic/Immunologic: Reports no additional allergic/immunologic complaints and Reports as per HPI PMFSH Past Medical History Medical History Adrenal cancer COPD (chronic obstructive pulmonary disease) History of lung cancer Surgical History Surgical History History of appendectomy History of lung biopsy Hx of tonsillectomy Status post complete hysterectomy Family History Family History (Reviewed 06/08/22 @ 19:03 by Alpesh Duffy Cha
--- NOTE | 2022-06-08 19:06 | ECG_ITS ---
Measurements Intervals [place] Rate: 83 P: 68 OH: 183 QRS: 46 QRSD: 85 T: 69 QT: 431 QTc: 507 Interpretive Statements SINUS RHYTHM POSSIBLE OLD INFEROLATERAL HI COMPARED TO ECG 02/03/2022 21:24:39 SINUS RHYTHM NOW PRESENT Q-WAVES PRESENT IN THE INFERIOR LATERAL LEADS SUGGESTIVE OF OLD HI Electronically Signed On 06-08-2022 19:56:30 DETECTIVE AND INTELLIGENCE ANALYST by Izabella Christensen M.D.
[2022-06-08 19:36] LABS: Basophils Absolute Auto 0.08 K/mm3 (0.00-0.10); Basophils Percent Auto 0.9 % (0.0-1.0); Eosinophils Absolute Auto 0.07 K/mm3 (0.02-0.50); Eosinophils Percent Auto 0.8 % (1.0-6.0); Hematocrit 31.7 % (35.0-49.0); Hemoglobin 10.9 g/dL (12.0-15.0); Immature Granulocyte Absolute 0.03 K/mm3 (0.00-0.00); Immature Granulocyte Percent A 0.3 % (0.0-0.0); Lymphocytes Absolute Auto 0.94 K/mm3 (1.10-4.50); Lymphocytes Percent Auto 10.3 % (18.0-42.0); Mean Corpuscular HGB Conc 34.4 g/dL (32.0-36.0); Mean Corpuscular Hemoglobin 32.2 pg (27.0-31.0); Mean Corpuscular Volume 93.5 fL (78.0-102.0); Mean Platelet Volume 8.9 fl (9.2-11.8); Monocytes Absolute Auto 0.71 K/mm3 (0.10-0.90); Monocytes Percent Auto 7.8 % (2.0-11.0); Neutrophils Absolute Auto 7.3 K/mm3 (1.7-7.2); Neutrophils Percent Auto 79.9 % (50.0-70.0); Platelet Count Result 284 K/mm3 (150-420); Red Blood Count 3.39 M/mm3 (4.20-5.40); White Blood Count 9.1 K/mm3 (4.8-10.8)
[2022-06-08 19:50] LABS: Partial Thromboplastin Time 27.1 SEC (23.90-30.70)
[2022-06-08 19:54] LABS: Lactic Acid Reflex 0.8 mmol/L (0.4-2.0)
[2022-06-08 20:05] LABS: Alanine Aminotransferase 37 U/L (14-59); Albumin Level 2.8 g/dL (3.4-5.0); Alkaline Phosphatase 270 U/L (46-116); Anion Gap 6 mmol/L (8-16); Aspartate Amino Transferase 30 U/L (15-37); Bilirubin,Total 0.2 mg/dL (0.00-1.00); Blood Urea Nitrogen 19 mg/dL (7-18); Calcium 8.3 mg/dL (8.5-10.1); Carbon Dioxide 30 mmol/L (21-32); Chloride 98 mmol/L (98-108); Estimated CRCL calculation 25 ml/min; Estimated Glomerular Filt Rate 32; Glucose 122 mg/dL (70-99); Lipase 47 U/L (16-77); Magnesium 2.9 mg/dL (1.8-2.4); NT Pro B Type Natriuretic Pept 1538 pg/mL (0-125); Osmolality Calculated 281 mOsm/kg (285-295); Potassium 3.3 mmol/L (3.5-5.1); Sodium 134 mmol/L (136-145); Total Protein 7.2 g/dL (6.4-8.2); Troponin I 12.3 ng/L (0.00-60.4)
[2022-06-08] MEDS: POTASSIUM BICARBONATE 25 MEQ TABEF PO (21:21)
--- NOTE | 2022-06-08 21:44 | PC.NURSE ---
Pt has had several high BPs. RN reports to ERP. New orders received.
[2022-06-08] MEDS: hydrALAZINE HCL 20 MG/ML VIAL 5 MG IV PUSH (21:48)
[2022-06-08] MEDS: amLODIPine BESYLATE 5 MG TABLET 10 MG PO (22:29)
--- NOTE | 2022-06-08 22:46 | PC.NURSE ---
Spoke with ERP and states pt can be brought up when pt's BPs start trending down.
--- NOTE | 2022-06-08 23:46 | ADMGEN ---
This patient, Darcie Redd, was admitted to 2nd Floor Room 206-1. Patient oriented to hospital policies and general routines including ID bracelet, bed and alarms, visiting hours, pain management, procedures, bathroom and other care routines, personal items, smoking policy, room service/diet, and visiting hours. Patient are encouraged to report perceived risks to care and to ask questions if they do not understand what they are told or what they should do.
[2022-06-09] VITALS: BP 185/91; PULSE 85; RESP 14; TEMP 36.7; O2SAT 96
[2022-06-09 03:51] VITALS: BP 163/82; PULSE 88; RESP 16; TEMP 36.2; O2SAT 94
[2022-06-09] MEDS: LEVOTHYROXINE SODIUM 100 MCG TABLET PO (06:08)
[2022-06-09 08:00] VITALS: BP 174/86; PULSE 101; RESP 20; TEMP 36.5; O2SAT 95
--- NOTE | 2022-06-09 09:21 | PM.IMHP ---
H&P: HPI History of Present Illness Date/Time: 06/09/22 09:21 Chief Complaint: Fall Narrative: This is a 62 year old patient that has been admitted with SA Bleed due to a fall, Lung cancer w mets, confusion Hypertension chronic, PE, hx afib no anticoagulated has not taken meds in a few days given the bleed we will hold off from anticoagulating her. Family does not want her transferred to trauma, Patient is only answering yes and no at time staring into space and every so often she may add some words. Mrs. Redd per family is to keep her comfortable. we ill be having a family meeting on what to do next. Patient blood pressure has remained high we are attempting to lower it . Patient denies any pain and or discomfort she is able to try and feed her self and then she needs assistance. She is weak on the right side and I have not attempted to get her up. After family discussion they have decided to go with [facility] and would like for patient to be kept comfortable. Review of Systems Review of Systems: slow response, one word response, Hypertension, All systems reviewed & are unremarkable except as noted in HPI and below PMFSH Past Medical History Medical History Adrenal cancer COPD (chronic obstructive pulmonary disease) History of lung cancer Surgical History Surgical History History of appendectomy History of lung biopsy Hx of tonsillectomy Status post complete hysterectomy Family History Family History Mother No problems noted. Other Diabetes mellitus Family history of alcoholism Family history of blood dyscrasia Family history of heart disease in male family member before age 55 Family history of seizure disorder Hypertension Social History Social History Smoking packs per day: 1 Smoking cigarettes per day: 20.0 Years smoked: 47 Smoking pack-years: 47.00 Smoking status: Unknown if ever smoked Tobacco type: cigarettes Additional smoking assessment comments: smokes 1 pack per day Alcohol intake: unknown Substance use: unknown Substance use type: prescription drug Other substance usage details: ativan Gender identity (if verbalized by the patient): Female Spiritual care concerns: No Agree to blood products: Yes Meds Home Medications and Allergies Home Medications Medication Instructions Recorded Confirmed Type albuterol sulfate 90 mcg/actuation 2 puff inhalation QIDRT PRN 04/24/19 06/08/22 Rx aerosol inhaler (Proventil HFA) Shortness Of Breath 30 days #90 mcg docusate sodium 100 mg capsule 100 mg PO DAILY 30 days #30 caps 04/24/19 06/08/22 Rx gabapentin 300 mg capsule 300 mg PO BID 30 days #60 caps 04/24/19 06/08/22 Rx (Neurontin) guaifenesin 600 mg tablet, 1,200 mg PO Q12HR 30 days #120 tabs 04/24/19 06/08/22 Rx extended release 12 hr (Mucus Relief ER) levothyroxine 100 mcg tablet 100 mcg PO DAILY@0630 30 days #30 04/24/19 06/08/22 Rx (Synthroid) tabs lorazepam 0.5 mg tablet 0.25 mg PO BID PRN anxiety #15 tabs 04/24/19 06/08/22 Rx lovastatin 20 mg tablet 10 mg PO QAM 30 days #15 tabs 04/24/19 06/08/22 Rx megestrol 400 mg/10 mL (10 mL) 400 mg (10 mL) PO BID 30 days #600 04/24/19 06/08/22 Rx oral suspension mL melatonin 5 mg tablet 5 mg PO HS 30 days #30 tabs 04/24/19 06/08/22 Rx montelukast 10 mg tablet 10 mg PO HS 30 days #30 tabs 04/24/19 06/08/22 Rx (Singulair) polyethylene glycol 3350 17 gram 17 g PO BID PRN Constipation 30 04/24/19 06/08/22 Rx oral powder packet (Miralax) days polyethylene glycol 3350 17 17 gm PO DAILY PRN constipation 04/24/19 06/08/22 Rx gram/dose oral powder (Miralax) #119 grams potassium chloride 20 mEq oral 20 meq PO BID 30 days 04/24/19 06/08/22 Rx packet verapamil 12
[2022-06-09] MEDS: SPIRONOLACTONE 25 MG TABLET 50 MG PO ×2 (09:40→17:16)
[2022-06-09] MEDS: amLODIPine BESYLATE 5 MG TABLET 10 MG PO (09:40)
[2022-06-09] MEDS: PHENYTOIN SODIUM 100 MG EXTENDED RELEASE CAP 200 MG BY MOUTH ×2 (09:41→21:16)
[2022-06-09 12:00] VITALS: BP 154/64; PULSE 97; RESP 19; TEMP 36.5; O2SAT 94
[2022-06-09 16:00] VITALS: BP 180/93; PULSE 91; RESP 16; TEMP 36.4; O2SAT 92
[2022-06-09] MEDS: PHENYTOIN SODIUM 100 MG EXTENDED RELEASE CAP BY MOUTH (17:16)
[2022-06-09 20:00] VITALS: BP 201/90; PULSE 90; PULSE 91; RESP 16; TEMP 36.8; O2SAT 92
[2022-06-09] MEDS: VERAPAMIL HCL ER 120 MG TABLET PO (21:15)
[2022-06-10] VITALS: BP 165/85; PULSE 95; RESP 16; TEMP 36.8; O2SAT 92
[2022-06-10 04:00] VITALS: BP 155/90; PULSE 95; RESP 17; TEMP 36.7; O2SAT 95
[2022-06-10 08:00] VITALS: BP 162/97; PULSE 93; RESP 15; TEMP 36.3; O2SAT 93
[2022-06-10] MEDS: PHENYTOIN SODIUM 100 MG EXTENDED RELEASE CAP 200 MG BY MOUTH (09:06)
[2022-06-10] MEDS: SPIRONOLACTONE 25 MG TABLET 50 MG PO (09:06)
[2022-06-10] MEDS: amLODIPine BESYLATE 5 MG TABLET 10 MG PO (09:06)
--- NOTE | 2022-06-10 11:01 | PM.DS ---
DS: Admitting Diagnosis Discharge Date 06/10/2022 Admitting Diagnosis Fall , Subarachnoid Hemorrhage DS: Discharge Diagnosis Discharge Diagnosis (1) Subarachnoid bleed: Code(s): I60.9 - Nontraumatic subarachnoid hemorrhage, unspecified Status: Acute Assessment and Plan: Hold Coumadin due to subarachnoid bleed risk for Pe movement family does not want transferred to trauma family meeting as to hospice or not. [facility] has accepted patient she is unresponsive continues to decline (2) Recurrent falls: Code(s): R29.6 - Repeated falls Status: Acute Assessment and Plan: fall precaution (3) Pulmonary embolus: Code(s): I26.99 - Other pulmonary embolism without acute cor pulmonale Status: Acute Assessment and Plan: is in need of anticoagulation unable at this time due to SA bleed will continue to monitor for SOB (4) D-dimer, elevated: Code(s): R79.89 - Other specified abnormal findings of blood chemistry Status: Acute (5) Metastatic disease: Code(s): C79.9 - Secondary malignant neoplasm of unspecified site Status: Acute Assessment and Plan: Chemo and radiation discontinued (6) GERD (gastroesophageal reflux disease): Code(s): K21.9 - Gastro-esophageal reflux disease without esophagitis Status: Acute Assessment and Plan: Protonix elevate head of bed while eating and continue to elevate 30 minutes after she eats. (7) History of seizure: Code(s): Z87.898 - Personal history of other specified conditions Status: Acute Assessment and Plan: stablized continue home medication (8) Hypertension: Code(s): I10 - Essential (primary) hypertension Status: Acute Assessment and Plan: continue blood pressure medication monitor vitals adjust as needed (9) Hypothyroidism: Code(s): E03.9 - Hypothyroidism, unspecified Status: Acute Assessment and Plan: continue home medication (10) COPD (chronic obstructive pulmonary disease): Code(s): J44.9 - Chronic obstructive pulmonary disease, unspecified Status: Acute Assessment and Plan: Continue to use inhalers breathing treatment as indicated. DS: Summary Hospital Course Reason for hospitalization: Subarachnoid hemorrhage, small cell carinoma Hospital Course: Patient today is not able to swallow and she is weaker and continue to decline staring into space and barely is speaking. Patient is not taking medication and she is going home on hospice where she is able to be kept comfortable at home. Patient is not following commands and or acknowledging the sound of my voice. Patient will go by ambulance to home where all the equipment has been set up. Patient has had a gilmore catheter placed for comfort at this time. Time Spent with Patient Time attestation: Total time spent providing and/or coordinating discharge services: Exam Narrative: GENERAL:Ill-appearing, mal-nourished, and in no acute distress. HEAD:Normocephalic, atraumatic. EYES: PE sluggish in response ENT: Nares clear, no rhinorrhea or epistaxis. Mucous membranes moist. CHEST: Clear to auscultation. No respiratory distress. HEART: Regular rate and rhythm. decreasel peripheral pulses. ABDOMEN: Soft, nontender, nondistended, normal active bowel sounds. EXTREMITIES: Normal range of motion. No edema. SKIN: Warm, dry, no rash. NEURO: No focal deficits. Alert and oriented x3. Const: General: no acute distress HENMT: Face/Nose/Sinus: Normal nares present Eyes: General: appearance normal, both eyes and all related structures Other: stares into space when talking to patient Resp: Effort & Inspection: normal respiratory effort Cardio: Rate: regular rate Skin: General skin exam: normal color Extrem: General: normal to inspection Psych: Other: only answers Yes or NO question and continues to stare into space
--- NOTE | 2022-06-13 11:29 | PC.NURSE ---
Pt discharged on hospice and 2 days later.
== END 2022-06-10 10:40 | disposition hospice, home (50) ==
LOC: CHSED 21:12 → CHS2ND 21:19
PROVIDERS: Admitting Provider Internal Medicine; Emergency Provider Internal Medicine Critical Care Medicine; PCP Internal Medicine; Visit Provider Internal Medicine
DX: I60.8 Other nontraumatic subarachnoid hemorrhage (principal); C34.90 Malignant neoplasm of unspecified part of unspecified bronchus or lung; C77.1 Secondary and unspecified malignant neoplasm of intrathoracic lymph nodes; C79.72 Secondary malignant neoplasm of left adrenal gland; I48.92 Unspecified atrial flutter; I12.9 Hypertensive chronic kidney disease with stage 1 through stage 4 chronic kidney disease, or unspecified chronic kidney disease; N18.9 Chronic kidney disease, unspecified; J44.9 Chronic obstructive pulmonary disease, unspecified; E03.9 Hypothyroidism, unspecified; R06.00 Dyspnea, unspecified; R13.10 Dysphagia, unspecified; G81.91 Hemiplegia, unspecified affecting right dominant side; F17.210 Nicotine dependence, cigarettes, uncomplicated; Z99.81 Dependence on supplemental oxygen; Z92.3 Personal history of irradiation; Z86.711 Personal history of pulmonary embolism; Z51.5 Encounter for palliative care; Z79.01 Long term (current) use of anticoagulants
CPT/HCPCS: 36415; 70450; 71045; 74176; 80053; 83605; 83690; 83735; 83880; 84484; 85025; 85610; 85730; 93005; 96374; 99285; A9270; G0378; J0360